=== PATIENT | female | born 1940 | race Caucasian/White ===

== ENCOUNTER → 2018-11-12 | Outpatient (CLI) | payer MEDICARE ==
--- NOTE | 2018-11-12 16:15 | CT ---
CT angiogram of the thoracic and abdominal aorta with runoff HISTORY: Abdominal aortic aneurysm Helical acquisition obtained through the aorta and outflow vasculature following 80 cc Isovue-370 IV. Three-dimensional reconstructions performed on an alternate workstation. There is atheromatous change present within the aorta. 3 super aortic branch vessels are noted and ar e patent. Vertebral arteries are patent proximally. The ascending aorta is not aneurysmal. There is n o evident dissection. Atheromatous change present within the descending aorta which is not aneurysmal . The celiac axis, superior mesenteric artery, renal arteries are patent. There is an infrarenal abdo daphney aortic aneurysm with luminal plaque present, aneurysm measures proximally 4.1 cm in greatest di mension. Common iliac arteries are not aneurysmal, there is extensive atheromatous change, the lumen suggest occlusion of the common iliac arteries, there is reconstitution via the internal iliac arteri es, external iliac arteries are patent, there are atheromatous changes. The superficial femoral, deep and common femoral arteries are patent. Popliteal arteries are patent. Three-vessel outflow is noted bilaterally. Emphysematous changes are present within the lungs, there is prominence of interstitium. Internal MRA arteries are patent bilaterally and collateralizes within the abdominal wall musculature. IMPRESSION: Infrarenal abdominal aortic aneurysm. Suspect a short segment occlusion of the common jia ac arteries bilaterally with reconstitution via the inferior epigastric arteries, pelvic collaterals, internal iliac arteries.
== END | disposition home or self-care (01) ==
LOC: RADCTMAIN 13:09
PROVIDERS: ATTEND Internal Medicine Cardiovascular Disease
DX: I71.4 Abdominal aortic aneurysm, without rupture (principal)
CPT/HCPCS: 82565; 84520; 75635; 71275; 36415; Q9967

== ENCOUNTER → 2019-02-25 | Outpatient (CLI) | payer MEDICARE ==
[2019-02-25 13:53] LABS: Potassium 4.7 mmol/L (3.5-5.1)
[2019-02-25 13:58] LABS: Basophils # (A) 0.2 k/uL (0-0.2); Basophils % (A) 1 %; Eosinophils # (A) 0.2 k/uL (0-0.7); Eosinophils % (A) 2 %; HCT 41.7 % (34.0-46.0); Lymphocytes # (A) 3.3 k/uL (1.0-4.8); Lymphocytes % (A) 29 %; MCH 31.4 pg (25.0-35.0); MCHC 33.6 g/dL (31.0-37.0); MCV 93.4 fL (80.0-100.0); Mean Platelet Volume 7.9; Monocytes # (A) 0.7 k/uL (0-1.0); Monocytes % (A) 6 %; Neutrophils # (A) 6.6 k/uL (1.3-7.7); Neutrophils % (A) 59 %; Platelet Count 310 k/uL (150-450); RBC 4.47 m/uL (3.80-5.40); RDW 14.5 % (11.5-15.5); WBC 11.2 k/uL (3.8-10.6)
[2019-02-25 14:22] LABS: Appearance,Urine Clear (Clear); Bilirubin,Urine Negative (Negative); Blood,Urine Negative (Negative); Color,Urine Light Yellow; Glucose,Urine (UA) Negative (Negative); Ketones,Urine Negative (Negative); Leukocyte Esterase,Urine Trace (Negative); Mucus,Urine Rare /hpf; Nitrite,Urine Negative (Negative); PH, Urine 6.5 (5.0-8.0); Protein,Urine Negative (Negative); RBC,Urine 1 /hpf (0-5); Specific Gravity,Urine 1.007 (1.001-1.035); Squamous Epithelial Cell,Urine <1 /hpf (0-4); Urobilinogen,Urine <2.0 mg/dL (<2.0); WBC,Urine <1 /hpf (0-5)
== END | disposition home or self-care (01) ==
LOC: LABPAT 12:59
PROVIDERS: ATTEND Surgery
DX: Z01.812 Encounter for preprocedural laboratory examination (principal); I70.213 Atherosclerosis of native arteries of extremities with intermittent claudication, bilateral legs
CPT/HCPCS: 36415; 80051; 81001; 82565; 84520; 85025

== ENCOUNTER 2019-03-10 08:32 | Inpatient (IN) | payer MEDICARE ==
[2019-03-05 15:40] VITALS: BMI 24.8
[~2019-03-10 08:32] MED LIST: DEXAMETHASONE SOD PHOSPHATE 10 MG/ML 1 ML VIAL IV ONE; HYDROmorphone 0.5 MG/0.5 ML SYRINGE IVP PRN; LACTATED RINGERS 1,000 ML IV SCH; LIDOCAINE 1% 20 ML VIAL (10MG/ML) FOR IV START INTRADERMA PRN; ONDANSETRON 4 MG/2 ML VIAL IVP PRN; SCOPOLAMINE 1.5MG/72HR PATCH TRANSDERM ONE; SODIUM CHLORIDE 0.9% 1,000 ML in EMPTY BAG 1 BAG IV ONE
[2019-03-10 09:21] LABS: Basophils # (A) 0.1 k/uL (0-0.2); Basophils % (A) 1 %; Eosinophils # (A) 0.3 k/uL (0-0.7); Eosinophils % (A) 3 %; HCT 40.4 % (34.0-46.0); HGB 13.5 gm/dL (11.4-16.0); Lymphocytes # (A) 2.9 k/uL (1.0-4.8); Lymphocytes % (A) 31 %; MCH 30.6 pg (25.0-35.0); MCHC 33.4 g/dL (31.0-37.0); MCV 91.8 fL (80.0-100.0); Mean Platelet Volume 6.9; Monocytes # (A) 0.6 k/uL (0-1.0); Monocytes % (A) 7 %; Neutrophils # (A) 5.3 k/uL (1.3-7.7); Neutrophils % (A) 56 %; Platelet Count 297 k/uL (150-450); RBC 4.41 m/uL (3.80-5.40); RDW 13.3 % (11.5-15.5); WBC 9.4 k/uL (3.8-10.6)
[2019-03-10] MEDS ORDERED: PHENYLEPHRINE-0.9% NACL SYG 1 MG/10 ML SYRINGE ONE (09:28)
[2019-03-10] MEDS ORDERED: SUCCINYLCHOLINE CHLORIDE 100 MG/5 ML SYR IV ONE (09:28)
[2019-03-10] MEDS ORDERED: DEXAMETHASONE SOD PHOS (MDV) 100 MG/10 ML VIAL ONE (09:28)
[2019-03-10] MEDS ORDERED: HEPARIN SODIUM,PORCINE 5,000 UNIT/ML 1 ML VIAL ONE (09:28)
[2019-03-10] MEDS ORDERED: ONDANSETRON 4 MG/2 ML VIAL ONE (09:28)
[2019-03-10] MEDS ORDERED: LIDOCAINE 1% INJ 10MG/ML (20 ML MDV) ONE (09:28)
[2019-03-10] MEDS ORDERED: PROPOFOL 10 MG/ML 20 ML VIAL IV ONE (09:28)
[2019-03-10] MEDS ORDERED: ePHEDrine SULFATE/0.9% NACL/PF 50 MG/5 ML SYRINGE IV ONE (09:28)
[2019-03-10] MEDS ORDERED: GLYCOPYRROLATE 0.2 MG/ML 2 ML VIAL ONE (09:28)
[2019-03-10] MEDS ORDERED: MIDAZOLAM 2 MG/2 ML VIAL ONE (09:28)
[2019-03-10] MEDS ORDERED: PROTAMINE SULFATE 10 MG/ML 5 ML VIAL IV ONE (09:28)
[2019-03-10] MEDS ORDERED: NITROGLYCERIN-D5W PMX 50 MG/250 ML BOTTLE IV ONE (09:28)
[2019-03-10] MEDS ORDERED: NEOSTIGMINE 1 MG/ML 10 ML VIAL ONE (09:28)
[2019-03-10] MEDS ORDERED: fentaNYL (PF) 50 MCG/ML 2 ML AMP ONE (09:28)
[2019-03-10] MEDS ORDERED: ROCURONIUM BROMIDE 10 MG/ML 10 ML VIAL IV ONE (09:28)
[2019-03-10 09:30] LABS: Calcium 10.2 mg/dL (8.4-10.2); Potassium 3.9 mmol/L (3.5-5.1)
[2019-03-10] MEDS ORDERED: SODIUM CHLORIDE 0.9% 1,000 ML IV ONE ×2 (09:35→14:03)
[2019-03-10] MEDS: LIDOCAINE 1% INJ 10MG/ML (20 ML MDV) SQ ONE ×3 (10:05→10:12)
[2019-03-10] MEDS: IOPAMIDOL-250 100ML BTL INTRAARTER ONE ×2 (11:00→13:24)
[2019-03-10] MEDS ORDERED: IOPAMIDOL-250 100ML BTL INTRAARTER ONE ×3 (11:30→13:49)
[2019-03-10] MEDS ORDERED: IOPAMIDOL-250 50ML BTL INTRAARTER ONE (13:50)
--- NOTE | 2019-03-10 14:54 | P.OP ---
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 #2 placement of catheter within the aorta #3 selective bilateral iliac artery angiograms #4 aortogram #5 retrograde femoral angiograms bilaterally. #6 percutaneous transluminal balloon angioplasty of the aorta, right common iliac, right external iliac, left common iliac, left external iliac arteries #7 endovascular aortic repair with AFX2 device. #8 percutaneous transluminal stenting with covered stent to the left common iliac artery and uncovered stenting of the right common iliac, external iliac artery #9 percutaneous closure with Perclose and 8-Andorran Angio-Seal for the right common femoral artery. Implants: Endologix AFX device 25 x 80 mm, suprarenal Salazar cuff 25 x 75 mm Left common iliac VBX stent 8 x 59 mm Right common iliac, external iliac artery ever Flex stent 8 x 120 mm Anesthesia: GETA Surgeon: Sunil Zuluaga Organic Extractions Technician #1: Brigitte Amador Estimated Blood Loss (ml): 30 IV fluids (ml): 1,300 Urine output (ml): 650 Pathology: none sent Condition: stable Disposition: PACU Indications for Procedure: 78-year-old female originally presented to the office secondary to complaints of pain with ambulation in her lower extremities and upon workup it was noted that she had a saccular 4.1 cm aneurysm. ABIs were obtained demonstrating 0.3 bilaterally. Upon physical examination patient did not have palpable femoral pulses and therefore a CT angiogram was obtained which demonstrated aortoiliac occlusion with 4.1 cm saccular aneurysm. We discussed after medical clearance was obtained performing endovascular repair if able to get across the lesions. She presents today for such repair. 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 Multiple collateralization noted throughout the entirety of the aorta as well as the iliacs bilaterally. Description of Procedure: After written informed consent was obtained the patient all risks benefits and competitions were described the patient is brought to the Change Control Analyst laid in a supine position. The area of the groins and left arm was prepped and draped in usual sterile fashion after appropriate anesthetic was performed per the anesthesiologist. A timeout was performed in normal fashion antibiotics were administered prior to any incisions. Utilizing ultrasound bilateral common femoral arteries were visualized and shown to be patent with minimal pulsatility. There was posterior plaque noted without any anterior plaque. Utilizing a multipurpose needle and under ultrasound guidance the bilateral femoral arteries were accessed and 5-Andorran sheaths were placed in normal fashion. The sheaths were then assessed for patency injured flushed easily. 035 Glidewire was then placed up each femoral sheath and demonstrated abrupt occlusion and inability of the wire to enter the aorta. At that time a retrograde angiogram was obtained through both femoral sheaths demonstrating total occlusion of the common iliac arteries bilaterally. At that time it was determined to get a better view of the aorta and therefore utilizing ultrasound the left brachial artery was accessed. Under ultrasound the left brachial a rtery was visualized shown to be patent without any significant arterial disease or plaquing. With a micropuncture kit the artery was accessed and a 5-Andorran sheath was placed. 035 Glidewire followed by a pigtail catheter was then placed into the aortic arch and directed into the descending thoracic aorta. Pigtail catheter was then taken down to the abdominal aorta just at the renal arteries and aortogram was obtained at that time. Patient was then administered heparin and followed with serial ACTs and redosed for appropriate heparinization to keep the ACT above 200. Upon angiogram it was noted that there was a 4.1 cm aneurysm with minimal flow to the sac and abrupt occlusion of the iliac arteries and distal aorta. There is large amount of collateralization noted and reconstitution at the distal common iliac arteries bilaterally. Due to the significant calcification and occlusion multiple attempts from the retrograde access as well as antegrade were going to be needed to be performed and therefore a long Raabe 6 Andorran sheath was placed through the brachial access after removal of the 5-Andorran sheath. Through this sheath and utilizing an 035 Glidewire with a quick cross catheter attempts were performed to get across the lesion. The same was performed in a retrograde fashion at bilateral femoral arteries with 035 Glidewire and quick cross catheters. Ultimately from the antegrade sheath in the brachial artery of the left iliac occlusion was crossed into the external iliac artery. Once in the external iliac artery a selective iliac angiogram was obtained which demonstrated intraluminal access. Utilizing a snare catheter the wire was grasped from the left femoral sheath and pulled to the external aspect of the sheath and a body floss technique. A 90 cm quick cr oss catheter was then placed over the wire from the femoral sheath and placed into the aorta past the occlusion. The wire was then removed and a another 035 Glidewire was placed into the descending thoracic aorta after selective aortic angiogram was obtained demonstrating good intraluminal access. Attempt and was placed to crossing the right iliac occlusion. Once again with the 035 Glidewire and quick cross catheter the iliac artery was attempted to be crossed. We also utilized a 018 Astato wire from a retrograde aspect with out success crossing into the aorta. After multiple attempts from the antegrade aspect the lumen was finally crossed after dissection plane was created. Selective angiogram once the quick cross catheter was across the external iliac lesion was performed and shown to be intraluminal. Utilizing the snare catheter once again the wire was grasped this time from the right femoral sheath and pulled externally and a body floss technique. 08/18/1989 centimeter quick cross catheter was then placed from the femoral sheath into the aorta and the wire was removed and an aortogram was obtained demonstrating good intraluminal access. 035 Glidewire was once again placed in the descending thoracic aorta. Catheters were then removed and balloon angioplasty was then performed with a 5 x 100 mm balloon in a kissing fashion both femoral sheaths. Once performed attention was then placed to endovascular aortic repair and stent placement. Over the 035 Glidewire on the right femoral access a 7-Andorran dilator was placed followed by 2 Perclose closure device which were placed in normal fashion. Once completed a 7-Andorran sheath was then guided over the guidewire and the guidewire was then exchanged over a quick cross catheter for a Lunderquist stiff wire. Due to the size of the Endologix sheath it was determined to perform another balloon angioplasty of the common iliac arteries with a 8 x 60 mm balloon. Once balloon angioplasty was completed the Endologix sheath was then advanced after removal of the 7-Andorran sheath over the Lunderquist wire. This was advanced to the bifurcation. A 25 x 80 mm AFX2 bifurcated device was then placed on the stiff wire and the contralateral wire was then advanced through the sheath and utilizing a snare catheter from the left common femoral artery the wire was then grasped and pulled to the external aspect of the left femoral sheath. The AFX introducer sheath was then advanced and the device was advanced into the aorta above the bifurcation releasing the limbs of the graft. The contralateral wire was then pulled and the graft was seated upon the bifurcation normal fashion. Once in agreement with good appropriate position the graft was then deployed in normal fashion. The left common iliac limb was then also deployed by pulling the yellow limb cover. A pigtail catheter was then placed over the left wire to free it from the introducer sheath. 035 Glidewire was then placed through the pigtail catheter and the pigtail catheter was placed into the descending thoracic aorta. Final deployment of the right iliac limb of the AFX device was then performed and the nosecone was retracted. There was significant narrowing of bilateral iliac limbs after deployment therefore the iliac limbs were angioplastied with 8 x 60 mm balloons. The calcification and stenosis was significant and therefore it was difficult to place the AFX sheath up the right iliac artery and therefore the 8 x 60 mm balloon was left in place in the left iliac limb to hold the graft in place while the AFX introducer sheath was placed into the infrarenal aorta. Once an appropriate placement aortogram was obtained via the brachial sheath after angles were performed with the C-arm for appropriate positioning of the renal arteries. Renal arteries were visualized and the main body 25 x 75 mm Salazar cath was then placed at the infrarenal aspect and deployed in normal fashion. Once completed the nosecone was retracted in normal fashion followed by its removal and then a Coda balloon was then placed for angioplasty throughout the entirety of the endograft. All overlaps were then angioplastied. Once completed angiogram was obtained demonstrating good flow through the AFX graft and no evidence of endoleak but there was some areas of dissection noted distal to the iliac limbs. An 8 x 59 mm VBX extension limb was then placed in the left common iliac artery just above the bifurcation of the internal and external iliac arteries to cover the significant stenosis and dissection. This was then postdilated with an 8 x 60 mm balloon. Due to the dissection on the right common iliac extending into the external iliac artery it was determined to place a 8 x 120 mm ever Flex open celled stent across this lesion which was deployed in normal fashion. Postdilatation was then performed with the 8 x 60 mm balloon. Final angiograms were obtained demonstrating good brisk flow throughout the entirety of the graft and stents without any evidence of endoleak. All guidewires and catheters were then removed the Perclose closure devices were secured on the right common femoral artery but there was still some bleeding and therefore an 8-Andorran Angio-Seal was then placed in normal fashion. Once completed angiogram was obtained which demonstrated significant narrowing of the common femoral artery at the access site and therefore a Glidewire was placed from the brachial access followed by a 6 mm balloon and balloon angioplasty was performed at the Angio-Seal site with good resolution of the narrowing and brisk flow on final angiogram noted through the common femoral and profunda as well as the superficial femoral artery. 8-Andorran Angio-Seal was also placed in the left common femoral access in normal fashion. At the final angiogram it was shown to have brisk flow throughout the femoral arteries. The brachial sheath was then removed and pressure was placed on all 3 sites at the conclusion of the procedure. Patient was also administered protamine for reversal of the heparin. Patient tolerated procedure well had palpable DP pulses at the conclusion of the procedure and was sent to PACU for recovery.
[2019-03-10] MEDS ORDERED: ONDANSETRON 4 MG/2 ML VIAL IVP ONE (14:56)
[2019-03-10 15:35] LABS: Glucose,Whole Blood 144 mg/dL (75-99)
[2019-03-10 15:54] LABS: Basophils % (A) 0 %; Eosinophils # (A) 0.1 k/uL (0-0.7); Eosinophils % (A) 0 %; HCT 32.7 % (34.0-46.0); HGB 11.2 gm/dL (11.4-16.0); Lymphocytes % (A) 7 %; MCHC 34.1 g/dL (31.0-37.0); MCV 93.7 fL (80.0-100.0); Mean Platelet Volume 7.8; Monocytes # (A) 0.2 k/uL (0-1.0); Monocytes % (A) 1 %; Neutrophils # (A) 14.1 k/uL (1.3-7.7); Neutrophils % (A) 92 %; Platelet Count 249 k/uL (150-450); RBC 3.49 m/uL (3.80-5.40); WBC 15.4 k/uL (3.8-10.6)
[2019-03-10 16:03] LABS: Calcium 8.3 mg/dL (8.4-10.2)
[2019-03-10] MEDS: HYDROcodone/APAP 5-325MG 1 EACH TAB PO PRN ×2 (16:27→18:58)
[2019-03-10] MEDS: SODIUM CHLORIDE 0.9% 1,000 ML IV SCH (17:17)
[2019-03-10] MEDS ORDERED: HYDROmorphone 0.5 MG/0.5 ML SYRINGE IVP PRN (18:35)
[2019-03-10] MEDS ORDERED: NALOXONE 0.4 MG/ML 1 ML VIAL IV PRN (18:59)
[2019-03-10] MEDS ORDERED: FAMOTIDINE 20 MG TAB PO PRN (19:14)
[2019-03-10] MEDS ORDERED: ONDANSETRON 4 MG/2 ML VIAL IVP PRN (19:48)
[2019-03-10] MEDS: ACETAMINOPHEN TAB 325 MG TAB PO PRN (20:00)
[2019-03-10 20:27] LABS: Appearance,Urine Clear (Clear); Bilirubin,Urine Negative (Negative); Blood,Urine Negative (Negative); Color,Urine Light Yellow; Glucose,Urine (UA) Negative (Negative); Ketones,Urine Negative (Negative); Leukocyte Esterase,Urine Negative (Negative); Nitrite,Urine Negative (Negative); PH, Urine 5.5 (5.0-8.0); Protein,Urine Negative (Negative); Urobilinogen,Urine <2.0 mg/dL (<2.0)
[2019-03-10 20:30] LABS: Specific Gravity,Urine >1.050 (1.001-1.035)
--- NOTE | 2019-03-10 23:59 | CONS ---
CONSULTATION CHIEF COMPLAINT: This is a 78-year-old white female, status post abdominal aortic aneurysm repair chest pain, shortness of breath, complaining of back pain from lying in one spot for a long time. Continue Tylenol for pain for her back, which will be ordered. Home medicines have been reordered. Fourteen-point review of systems negative except for mentioned in HPI. Labs are reviewed. Hemoglobin is 11.2, white count 15.4, creatinine 0.87, BUN 19. CARDIOVASCULAR: S1, S2. LUNGS: Clear. GI: Soft. HEMATOLOGY: Negative Homans. PSYCH: Fair mood and affect. NEUROLOGIC: Alert and oriented x3. ASSESSMENT: 1. Abdominal aortic aneurysm repair. 2. PAD repair. 3. Hypertension. Continue current treatments. Follow up in next 24 to 48 hours. Medically stable. Give Tylenol for back pain. MMODL / IJN: [id number] /
[2019-03-11 04:07] LABS: Basophils % (A) 0 %; Eosinophils % (A) 0 %; HCT 29.5 % (34.0-46.0); Lymphocytes # (A) 1.3 k/uL (1.0-4.8); Lymphocytes % (A) 11 %; MCH 29.7 pg (25.0-35.0); MCHC 31.8 g/dL (31.0-37.0); MCV 93.4 fL (80.0-100.0); Mean Platelet Volume 8.2; Monocytes # (A) 0.8 k/uL (0-1.0); Monocytes % (A) 7 %; Neutrophils # (A) 9.6 k/uL (1.3-7.7); Neutrophils % (A) 81 %; Platelet Count 202 k/uL (150-450); RBC 3.15 m/uL (3.80-5.40); RDW 13.5 % (11.5-15.5); WBC 11.8 k/uL (3.8-10.6)
[2019-03-11 04:21] LABS: Magnesium 1.7 mg/dL (1.6-2.3); Potassium 3.8 mmol/L (3.5-5.1)
[2019-03-11 04:22] LABS: HGB 9.4 gm/dL (11.4-16.0)
[2019-03-11] MEDS ORDERED: Magnesium Replacement Protocol 1 EACH MISC MISCELLANE PRN (05:43)
[2019-03-11] MEDS ORDERED: Potassium Replacement Protocol 1 EACH MISC MISCELLANE PRN (05:44)
[2019-03-11] MEDS: MAGNESIUM SULFATE-D5W PMX 1 GM in DEXTROSE/WATER 1 100ML.BAG IVPB SCH ×2 (05:54→06:55)
[2019-03-11] MEDS ORDERED: POTASSIUM CHLORIDE ER 20 MEQ TAB.ER PO SCH (06:00)
[2019-03-11] MEDS: SODIUM CHLORIDE 0.9% 1,000 ML IV SCH ×3 (06:56→19:56)
[2019-03-11] MEDS: HYDROCHLOROTHIAZIDE 25 MG TAB PO SCH (09:24)
[2019-03-11] MEDS: ASPIRIN 81 MG PO SCH (09:24)
[2019-03-11] MEDS: CLOPIDOGREL 75 MG TAB PO SCH (09:24)
[2019-03-11] MEDS: LOSARTAN 50 MG TAB PO SCH (09:24)
--- NOTE | 2019-03-11 10:35 | P.CNPUL ---
History of Present Illness Consult date: 03/10/19 Chief complaint: PVOD History of present illness: This is a 78-year-old female patient with history of claudication and pain in lower extremities upon walking and she was also noted to have a saccular 4.1 aneurysm. She did have a cineangiogram on outpatient basis demonstrating aortoiliac occlusion with a 4.1 cm saccular aneurysm. Based on this, the patient was taken to the operating room and the patient underwent a selective by lateral iliac artery angiograms an aortogram's and the patient underwent percutaneous transluminal balloon angioplasty of the aorta, right common iliac, right external iliac, left common iliac and left external iliac arteries. Endovascular aortic repair within AFX2 device and percutaneous transluminal stenting with a covered stent in the left common iliac artery and uncovered stent in the right common iliac artery Iliac artery. Past Medical History Past Medical History: Hypertension, Vascular Disorder Additional Past Medical History / Comment(s): aortic aneurysm, osteoporosis History of Any Multi-Drug Resistant Organisms: None Reported Past Surgical History: Bladder Surgery, Hysterectomy Additional Past Surgical History / Comment(s): D & C, bladder suspension Past Anesthesia/Blood Transfusion Reactions: No Reported Reaction Smoking Status: Former smoker - Past Family History Mother Family Medical History: No Reported History Medications and Allergies Home Medications Medication Instructions Recorded Confirmed Type Cimetidine [Tagamet] 200 mg PO BID PRN 03/08/19 03/10/19 History Hydrochlorothiazide [Hydrodiuril] 25 mg PO DAILY 03/08/19 03/10/19 History Losartan Potassium [Cozaar] 100 mg PO DAILY 03/08/19 03/10/19 History Allergies Allergy/AdvReac Type Severity Reaction Status Date / Time metronidazole [From Flagyl] Allergy Rash/Hives Verified 03/10/19 08:47 Physical Exam Vitals: Vital Signs Temp Pulse Pulse Pulse Resp BP BP 03/10/19 17:10 71 13 03/10/19 17:00 94.6 F L 65 10 L 137/87 03/10/19 16:50 46 L 23 137/87 03/10/19 16:40 52 L 13 137/87 03/10/19 16:30 59 L 16 137/87 03/10/19 16:20 58 L 8 L 137/87 03/10/19 16:10 94.6 F L 55 L 13 137/87 03/10/19 16:00 93.9 F L 58 L 12 03/10/19 15:50 59 L 6 L 137/87 03/10/19 15:40 64 13 137/87 03/10/19 15:30 58 L 67 12 137/87 03/10/19 15:20 93.6 F L 55 L 12 137/87 03/10/19 14:45 60 14 128/66 03/10/19 14:30 98.7 F 73 16 118/69 03/10/19 09:31 97.6 F 68 16 167/71 BP BP Pulse Ox 03/10/19 17:10 98 03/10/19 17:00 100 03/10/19 16:50 100 03/10/19 16:40 97 03/10/19 16:30 99 03/10/19 16:20 98 03/10/19 16:10 99 03/10/19 16:00 99 03/10/19 15:50 100 03/10/19 15:40 92 L 03/10/19 15:30 137/87 95 03/10/19 15:20 98 03/10/19 14:45 137/58 99 03/10/19 14:30 148/58 100 03/10/19 09:31 99 Intake and Output 03/10/19 03/10/19 03/10/19 06:59 14:59 22:59 Intake Total 1350 300 Output Total 275 170 Balance 1075 130 Intake: IV 1350 200 Sodium Chloride 0.9% 1, 200 000 ml @ 100 mls/hr IV . Q10H SATNAM Rx#:[id number] Intake, IV Titration 100 Amount Sodium Chloride 0.9% 1, 100 000 ml @ 100 mls/hr IV . Q10H SATNAM Rx#:[id number] Output: Urine 275 170 Other: Weight 60.4 kg ABP, PAP, CO, CI - Last 8 Hours Arterial Blood Pressure 136/68 Arterial Blood Pressure 126/62 Arterial Blood Pressure 121/52 Arterial Blood Pressure 105/52 Arterial Blood Pressure 116/56 Arterial Blood Pressure 118/57 Arterial Blood Pressure 118/56 Arterial Blood Pressure 125/56 Arterial Blood Pressure 127/62 Arterial Blood Pressure 125/60 Arterial Blood Pressure 145/62 Arterial Blood Pressure 131/53 The patient appeared well nourished and normally developed. Vital signs as docu mented. Head exam is unremarkable. No scleral icterus or corneal arcus noted. Neck is without jugular venous distension, thyromegaly, or carotid bruits. Carotid upstrokes are brisk bilaterally. Lungs are clear to auscultation and percussion. Cardiac exam reveals the PMI to be normally sized and situated. Rhythm is regular. First and second heart sounds normal. No murmurs, rubs or gallops. Abdominal exam reveals normal bowel sounds, no masses, no organomegaly and no aortic enlargement. Extremities are nonedematous and both femoral and pedal pulses are normal.Examination of the skin revealed no evidence of significant rashes, suspicious appearing nevi or other concerning lesions. Neurologically the patient is awake and alert and is no focal logical deficits. Results - Laboratory Findings CBC and BMP: 03/10/19 15:28 03/10/19 15:28 Abnormal lab findings: Abnormal Labs 03/10/19 03/10/19 03/10/19 09:00 15:23 15:28 WBC 15.4 H RBC 3.49 L Hgb 11.2 L Hct 32.7 L Neutrophils # 14.1 H Sodium BUN 24 H Creatinine 1.12 H Glucose 109 H POC Glucose (mg/dL) 144 H Calcium 03/10/19 15:28 WBC RBC Hgb Hct Neutrophils # Sodium 135 L BUN 19 H Creatinine Glucose 167 H POC Glucose (mg/dL) Calcium 8.3 L Assessment and Plan Plan: 1 aorta biiliac artery occlusion with infrarenal abdominal aortic second aneurysm measuring 4.1 cm. The patient underwent endovascular aortic repair, percutaneous stenting of the left common iliac and right common iliac and exte rnal iliac artery. Patient is currently postop day #0 2 hypertension 3 claudication second to peripheral vascular disease Plan Continue IV fluids. Aspirin. Plavix. Local for pain control. We'll monitor the patient ICU for another 24 hours. We'll continue to follow. Surgical wound to the dry clean and intact. There is adequate pulses in lower extremities bilaterally. No signs of an acute vascular insufficiency post vascular surgery.
[2019-03-11 12:08] LABS: HCT 29.4 % (34.0-46.0); MCH 31.8 pg (25.0-35.0); MCV 93.3 fL (80.0-100.0); Mean Platelet Volume 7.1; Platelet Count 237 k/uL (150-450); RBC 3.15 m/uL (3.80-5.40); RDW 13.6 % (11.5-15.5); WBC 16.7 k/uL (3.8-10.6)
--- NOTE | 2019-03-11 12:24 | P.PN ---
Subjective Progress Note Date: 03/11/19 Principal diagnosis: Status post percutaneous repair of abdominal aortic aneurysm and bilateral iliac arterial occlusive disease. A she is evaluated today. She indicates no discomfort in either leg or abdomen area. She is eating without nausea or vomiting. Her complaint is that of some occasional numbness of the fourth finger of the left upper extremity. Examination today revealed femoral, popliteal and posterior tibial pulses are intact bilaterally as well as a dorsalis pedis pulse on the left. Puncture wounds in the groin area are clean, dry and are healing normally. The puncture wound in the left brachial area is also clean and dry. I could not appreciate a brachial or radial pulse on the left. Systolic blood pressure is essentially equal between the 2 extremities on nearly simultaneous blood pressure readings utilizing cuff. The patient's hand is freely movable and nontender. There is no evidence of cyanosis. Labs are reviewed. There is a modest dip in hemoglobin and this is being followed. The patient's urine output has been quite normal. Her vitals are stable and the patient is afebrile. The patient appears essentially stable from a vascular surgical standpoint. The patient is free to ambulate ad xavi. Once cleared by medicine the patient can be discharged from a vascular surgical standpoint with office follow-up with Dr. Zuluaga in the office the next 2 or so weeks. Objective - Vital Signs Vital signs: Vital Signs Temp 98.7 F 03/11/19 08:00 Pulse 82 03/11/19 11:00 Resp 21 03/11/19 11:00 BP 113/58 03/11/19 10:00 Pulse Ox 99 03/11/19 11:00 Intake & Output 03/10/19 03/11/19 03/11/19 18:59 06:59 18:59 Intake Total 1750 1200 300 Output Total 495 373 145 Balance 1255 827 155 Weight 60.4 kg 66.7 kg Intake: IV 1650 1200 300 Sodium Chloride 0.9% 1, 300 1200 300 000 ml @ 100 mls/hr IV . Q10H SATNAM Rx#:[id number] Intake, IV Titration 100 Amount Sodium Chloride 0.9% 1, 100 000 ml @ 100 mls/hr IV . Q10H SATNAM Rx#:[id number] Output: Urine 495 373 145 ABP, PAP, CO, CI - Last Documented Arterial Blood Pressure 111/56 - Labs CBC & Chem 7: 03/11/19 11:55 03/11/19 04:00 Labs: Abnormal Lab Results - Last 24 Hours (Table) 03/10/19 03/10/19 03/10/19 Range/Units 15:23 15:28 15:28 WBC 15.4 H (3.8-10.6) k/uL RBC 3.49 L (3.80-5.40) m/uL Hgb 11.2 L (11.4-16.0) gm/dL Hct 32.7 L (34.0-46.0) % Neutrophils # 14.1 H (1.3-7.7) k/uL Sodium 135 L (137-145) mmol/L Carbon Dioxide (22-30) mmol/L BUN 19 H (7-17) mg/dL Glucose 167 H (74-99) mg/dL POC Glucose (mg/dL) 144 H (75-99) mg/dL Calcium 8.3 L (8.4-10.2) mg/dL Ur Specific Clyde (1.001-1.035) 03/10/19 03/11/19 03/11/19 Range/Units 20:00 04:00 04:00 WBC 11.8 H (3.8-10.6) k/uL RBC 3.15 L (3.80-5.40) m/uL Hgb 9.4 L D (11.4-16.0) gm/dL Hct 29.5 L (34.0-46.0) % Neutrophils # 9.6 H (1.3-7.7) k/uL Sodium 134 L (137-145) mmol/L Carbon Dioxide 21 L (22-30) mmol/L BUN 21 H (7-17) mg/dL Glucose 140 H (74-99) mg/dL POC Glucose (mg/dL) (75-99) mg/dL Calcium 8.0 L (8.4-10.2) mg/dL Ur Specific Clyde >1.050 H (1.001-1.035) 03/11/19 Range/Units 11:55 WBC 16.7 H (3.8-10.6) k/uL RBC 3.15 L (3.80-5.40) m/uL Hgb 10.0 L (11.4-16.0) gm/dL Hct 29.4 L (34.0-46.0) % Neutrophils # (1.3-7.7) k/uL Sodium (137-145) mmol/L Carbon Dioxide (22-30) mmol/L BUN (7-17) mg/dL Glucose (74-99) mg/dL POC Glucose (mg/dL) (75-99) mg/dL Calcium (8.4-10.2) mg/dL Ur Specific [place] (1.001-1.035)
--- NOTE | 2019-03-11 12:27 | P.PN ---
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 She did have a cineangiogram on outpatient basis demonstrating aortoiliac occlusion with a 4.1 cm saccular aneurysm. Based on this, the patient was taken to the operating room and the patient underwent a selective by lateral iliac artery angiograms an aortogram's and the patient underwent percutaneous transluminal balloon angioplasty of the aorta, right common iliac, right external iliac, left common iliac and left external iliac arteries. Endovascular aortic repair within AFX2 device and percutaneous transluminal stenting with a covered stent in the left common iliac artery and uncovered stent in the right common iliac artery Iliac artery. On 03/11/2018 patient seen in follow-up in intensive care unit. She is awake and alert, in no acute distress, she sits up in the chair, on room air, denies any chest pain, or shortness of breath, hemodynamically stable, no fever or chil ls, pulse ox is 99% on room air, lower extremities are warm, with palpable pulses, no numbness or tingling, the patient has complained of some left ring finger numbness and coolness, and vascular surgery assessed the patient and did not feel it was related to vascular abnormality but rather to nerve. Today's labs have been reviewed, showing a white blood cell count 16.7, hemoglobin of 10.0, sodium was 134, potassium is 3.8, CO2 is 21, B1 is 21, creatinine 0.93. No chest x-rays, no acute events overnight, antisipate discharge home today. Objective - Vital Signs Vital signs: Vital Signs Temp 98.7 F 03/11/19 08:00 Pulse 82 03/11/19 11:00 Resp 21 03/11/19 11:00 BP 113/58 03/11/19 10:00 Pulse Ox 99 03/11/19 11:00 Intake & Output 03/10/19 03/11/19 03/11/19 18:59 06:59 18:59 Intake Total 1750 1200 300 Output Total 495 373 145 Balance 1255 827 155 Weight 60.4 kg 66.7 kg Intake: IV 1650 1200 300 Sodium Chloride 0.9% 1, 300 1200 300 000 ml @ 100 mls/hr IV . Q10H [facility] Rx#:[id number] Intake, IV Titration 100 Amount Sodium Chloride 0.9% 1, 100 000 ml @ 100 mls/hr IV . Q10H [facility] Rx#:[id number] Output: Urine 495 373 145 ABP, PAP, CO, CI - Last Documented Arterial Blood Pressure 111/56 - Exam GENERAL EXAM: Alert, very pleasant, 78-year-old white female, on room air, with a pulse ox of 99% comfortable in no apparent distress. HEAD: Normocephalic/atraumatic. EYES: Normal reaction of pupils, equal size. Conjunctiva pink, sclera white. NOSE: Clear with pink turbinates. THROAT: No erythema or exudates. NECK: No masses, no JVD, no thyroid enlargement, no adenopathy. CHEST: No chest wall deformity. Symmetrical expansion. LUNGS: Equal air entry with no crackles, wheeze, rhonchi or dullness. CVS: Regular rate and rhythm, normal S1 and S2, no gallops, no murmurs, no rubs ABDOMEN: Soft, nontender. No hepatosplenomegaly, normal bowel sounds, no guarding or rigidity. EXTREMITIES: No clubbing, no edema, no cyanosis, 2+ pulses and upper and lower extremities. MUSCULOSKELETAL: Muscle strength and tone normal. SPINE: No scoliosis or deformity SKIN: No rashes CENTRAL NERVOUS SYSTEM: Alert and oriented -3. No focal deficits, tone is normal in all 4 extremities. PSYCHIATRIC: Alert and oriented -3. Appropriate affect. Intact judgment and insight. - Labs CBC & Chem 7: 03/11/19 11:55 03/11/19 04:00 Labs: Abnormal Lab Results - Last 24 Hours (Table) 03/10/19 03/10/19 03/10/19 Range/Units 15:23 15:28 15:28 WBC 15.4 H (3.8-10.6) k/uL RBC 3.49 L (3.80-5.40) m/uL Hgb 11.2 L (11.4-16.0) gm/dL Hct 32.7 L (34.0-46.0) % Neutrophils # 14.1 H (1.3-7.7) k/uL Sodium 135 L (137-145) mmol/L Carbon Dioxide (22-30) mmol/L BUN 19 H (7-17) mg/dL Glucose 167 H (74-99) mg/dL POC Glucose (mg/dL) 144 H (75-99) mg/dL Calcium 8.3 L (8.4-10.2) mg/dL Ur Specific [place] (1.001-1.035) 03/10/19 03/11/19 03/11/19 Range/Units 20:00 04:00 04:00 WBC 11.8 H (3.8-10.6) k/uL RBC 3.15 L (3.80-5.40) m/uL Hgb 9.4 L D (11.4-16.0) gm/dL Hct 29.5 L (34.0-46.0) % Neutrophils # 9.6 H (1.3-7.7) k/uL Sodium 134 L (137-145) mmol/L Carbon Dioxide 21 L (22-30) mmol/L BUN 21 H (7-17) mg/dL Glucose 140 H (74-99) mg/dL POC Glucose (mg/dL) (75-99) mg/dL Calcium 8.0 L (8.4-10.2) mg/dL Ur Specific [place] >1.050 H (1.001-1.035) 03/11/19 Range/Units 11:55 WBC 16.7 H (3.8-10.6) k/uL RBC 3.15 L (3.80-5.40) m/uL Hgb 10.0 L (11.4-16.0) gm/dL Hct 29.4 L (34.0-46.0) % Neutrophils # (1.3-7.7) k/uL Sodium (137-145) mmol/L Carbon Dioxide (22-30) mmol/L BUN (7-17) mg/dL Glucose (74-99) mg/dL POC Glucose (mg/dL) (75-99) mg/dL Calcium (8.4-10.2) mg/dL Ur Specific [place] (1.001-1.035) Assessment and Plan Plan: Assessment: 1 aorta biiliac artery occlusion with infrarenal abdominal aortic second aneurysm measuring 4.1 cm. The patient underwent endovascular aortic repair, percutaneous stenting of the left common iliac and right common iliac and exte rnal iliac artery. Patient is currently postop day #1 2 hypertension 3 claudication second to peripheral vascular disease Plan: Clinically patient remains stable, hemodynamically stable, no complaints of chest pain, or shortness of breath, no acute events overnight, today's lab work has been noted, lower extremity pulses are palpable, extremities are warm, no numbness or tingling, patient is tolerating activity, has been cleared for discharge by vascular surgery. I performed a history & physical examination of the patient and discussed their management with my nurse practitioner, Paulina Brewster. I reviewed the nurse practitioner's note and agree with the documented findings and plan of care. Lung sounds are positive for clear breath sounds. The findings and the impression was discussed with the patient. I attest to the documentation by the nurse practitioner. Time with Patient: Less than 30
[2019-03-11] MEDS ORDERED: FAMOTIDINE 20 MG TAB PO PRN (13:28)
--- NOTE | 2019-03-11 16:15 | P.PN ---
Subjective Progress Note Date: 03/11/19 This is a 70-year-old female status post abdominal aortic aneurysm repair. Tolerated procedure well. Sitting up in chair, denies chest pain, palpitations or shortness of breath. Telemetry sinus rhythm. Hemoglobin 9.4, platelets 202; follow-up CBC at noon pending. Denies lightheadedness dizziness or focal deficits. Vital signs stable. Maintaining O2 sats in the high 90s on room air. Earlier complained of left ring finger numbness, coolness, subsided; extremity warm, capillary refill less than 2 second, positive radial pulse. Afebrile. Objective - Vital Signs Vital signs: Vital Signs Temp 98.7 F 03/11/19 08:00 Pulse 84 03/11/19 14:00 Resp 14 03/11/19 14:00 BP 117/54 03/11/19 14:00 Pulse Ox 99 03/11/19 14:00 Intake & Output 03/10/19 03/11/19 03/11/19 18:59 06:59 18:59 Intake Total 1750 1200 600 Output Total 495 373 695 Balance 1255 827 -95 Weight 60.4 kg 66.7 kg Intake: IV 1650 1200 600 Sodium Chloride 0.9% 1, 300 1200 600 000 ml @ 100 mls/hr IV . Q10H [facility] Rx#:[id number] Intake, IV Titration 100 Amount Sodium Chloride 0.9% 1, 100 000 ml @ 100 mls/hr IV . Q10H [facility] Rx#:[id number] Output: Urine 495 373 695 ABP, PAP, CO, CI - Last Documented Arterial Blood Pressure 111/56 - Exam PHYSICAL EXAM: VITAL SIGNS: As above GENERAL: Sitting up in chair, no acute distress HEENT: Conjunctivae normal. eyes normal. Oral mucosa moist NECK: No JVD. No thyroid enlargement. No LNs CARDIOVASCULAR: S1, S2 regular.. No murmur RESPIRATION: Breath sounds diminished in the bases. No rhonchi or crackles. No bronchial breathing. ABDOMEN: Soft, nontender . No guarding. no masses palpable. No ascites, No hepatosplenomegaly.Bowel sounds heard. EXTREMITIES: No swelling, no edema, no cyanosis. No calf tenderness, no clubbing. Positive palpable pulses all 4 extremities. PSYCHIATRY: Alert and oriented X3, mood and affect normal. NERVOUS SYSTEM: Cranial N 2-12 grossly normal. Moves all 4 limbs. Diffuse weakness No focal deficits. Strength and sensation grossly intact.. Skin: no lesions, no rash Lymphatic system. No LN neck axilla or groin. - Labs CBC & Chem 7: 03/11/19 11:55 03/11/19 04:00 Labs: Abnormal Lab Results - Last 24 Hours (Table) 03/10/19 03/10/19 03/10/19 Range/Units 15:23 15:28 15:28 WBC 15.4 H (3.8-10.6) k/uL RBC 3.49 L (3.80-5.40) m/uL Hgb 11.2 L (11.4-16.0) gm/dL Hct 32.7 L (34.0-46.0) % Neutrophils # 14.1 H (1.3-7.7) k/uL Sodium 135 L (137-145) mmol/L Carbon Dioxide (22-30) mmol/L BUN 19 H (7-17) mg/dL Glucose 167 H (74-99) mg/dL POC Glucose (mg/dL) 144 H (75-99) mg/dL Calcium 8.3 L (8.4-10.2) mg/dL Ur Specific [place] (1.001-1.035) 03/10/19 03/11/19 03/11/19 Range/Units 20:00 04:00 04:00 WBC 11.8 H (3.8-10.6) k/uL RBC 3.15 L (3.80-5.40) m/uL Hgb 9.4 L D (11.4-16.0) gm/dL Hct 29.5 L (34.0-46.0) % Neutrophils # 9.6 H (1.3-7.7) k/uL Sodium 134 L (137-145) mmol/L Carbon Dioxide 21 L (22-30) mmol/L BUN 21 H (7-17) mg/dL Glucose 140 H (74-99) mg/dL POC Glucose (mg/dL) (75-99) mg/dL Calcium 8.0 L (8.4-10.2) mg/dL Ur Specific [place] >1.050 H (1.001-1.035) 03/11/19 Range/Units 11:55 WBC 16.7 H (3.8-10.6) k/uL RBC 3.15 L (3.80-5.40) m/uL Hgb 10.0 L (11.4-16.0) gm/dL Hct 29.4 L (34.0-46.0) % Neutrophils # (1.3-7.7) k/uL Sodium (137-145) mmol/L Carbon Dioxide (22-30) mmol/L BUN (7-17) mg/dL Glucose (74-99) mg/dL POC Glucose (mg/dL) (75-99) mg/dL Calcium (8.4-10.2) mg/dL Ur Specific [place] (1.001-1.035) Assessment and Plan Assessment: Status post abdominal aortic aneurysm repair PAD repair Hypertension Plan: Continue current medication regime ,monitoring and symptomatic treatment. Follow closely with fish farm laborer/vascular surgery. Vascular surgery discussing potential discharge home today, pending repeat CBC. Further recommendations to follow. Thank you Dr. Zuluaga for the consult. The impression and plan of care has been dictated as directed. : I performed a history and examination of this patient, discussed the same with the dictator. I agree with the dictator's note ,documented as a scribe. Any additional findings or plans will be noted.
[2019-03-11 18:46] LABS: Basophils # (A) 0.1 k/uL (0-0.2); Basophils % (A) 1 %; Eosinophils # (A) 0.2 k/uL (0-0.7); Eosinophils % (A) 1 %; HCT 31.2 % (34.0-46.0); HGB 10.3 gm/dL (11.4-16.0); Lymphocytes # (A) 1.4 k/uL (1.0-4.8); Lymphocytes % (A) 9 %; MCH 31.3 pg (25.0-35.0); MCHC 33.1 g/dL (31.0-37.0); MCV 94.4 fL (80.0-100.0); Mean Platelet Volume 7.7; Monocytes # (A) 0.9 k/uL (0-1.0); Monocytes % (A) 5 %; Neutrophils # (A) 13.6 k/uL (1.3-7.7); Neutrophils % (A) 83 %; Platelet Count 237 k/uL (150-450); RBC 3.31 m/uL (3.80-5.40); RDW 13.7 % (11.5-15.5); WBC 16.3 k/uL (3.8-10.6)
[2019-03-11] MEDS: ACETAMINOPHEN TAB 325 MG TAB PO PRN (22:13)
[2019-03-12] MEDS: SODIUM CHLORIDE 0.9% 1,000 ML IV SCH (04:28)
[2019-03-12 04:59] LABS: Basophils % (A) 0 %; Eosinophils # (A) 0.3 k/uL (0-0.7); Eosinophils % (A) 2 %; HCT 28.7 % (34.0-46.0); HGB 9.8 gm/dL (11.4-16.0); Lymphocytes # (A) 2.6 k/uL (1.0-4.8); Lymphocytes % (A) 20 %; MCH 31.4 pg (25.0-35.0); MCHC 34.3 g/dL (31.0-37.0); MCV 91.4 fL (80.0-100.0); Mean Platelet Volume 6.5; Monocytes # (A) 0.8 k/uL (0-1.0); Monocytes % (A) 6 %; Neutrophils # (A) 9.4 k/uL (1.3-7.7); Neutrophils % (A) 71 %; Platelet Count 238 k/uL (150-450); RBC 3.13 m/uL (3.80-5.40); RDW 13.3 % (11.5-15.5); WBC 13.4 k/uL (3.8-10.6)
[2019-03-12 05:10] LABS: Magnesium 2.1 mg/dL (1.6-2.3); Potassium 3.6 mmol/L (3.5-5.1)
[2019-03-12] MEDS ORDERED: POTASSIUM CHLORIDE ER 20 MEQ TAB.ER PO SCH (06:00)
--- NOTE | 2019-03-12 09:20 | P.DS ---
Providers Date of admission: 03/10/19 08:32 Attending physician: Sunil Zuluaga DO Consults: 03/10/19 06:20 Consult to Anesthesia Routine Consulting Provider: Anesthesia,Services Consult Reason/Comments: General anesthesia for Aortic Stent procedure 03/10/19 14:33 Consult Physician Routine Consulting Provider: Jamshid Toney Consult Reason/Comments: Medical management post AAA repair Do you want consulting provider notified?: Yes 03/10/19 14:50 Consult Physician Urgent Consulting Provider: Debra John Consult Reason/Comments: ICU managemnt Do you want consulting provider notified?: Yes 03/10/19 16:27 Consult Physician Routine Consulting Provider: Jeffrey Solitario Consult Reason/Comments: Covers medical management for Dr. Jamshid Toney post AAA repair. Do you want consulting provider notified?: Yes Primary care physician: Jamshid Toney Hospital Course: Patient is a 78-year-old female who was initially admitted from the outpatient setting for repair of her infrarenal abdominal aortic aneurysm and occluded iliac arteries bilaterally which she underwent on 03/10/2019. In the postoperative period she is doing well. Today she has been tolerating her diet. She will ambulate again today and if this goes well she will be discharged home. Her abdomen is soft, nontender nondistended. She has palpable ultrasound pedis pulses bilaterally. Her feet are warm and dry. Her left arm, on her fourth finger there is a little bit of duskiness at the tip, although her pulses are intact in her Doppler signals are multiphasic both radial and ulnar. There is capillary refill. She will be started on Plavix upon discharge due to her new stents and occlusive disease in her bilateral iliacs. She has a follow-up with Dr. Zuluaga in approximately 2 weeks. At this time she is found be in satisfactory condition for discharge home. Patient Condition at Discharge: Good Plan - Discharge Summary Discharge Rx Participant: Yes New Discharge Prescriptions: New Aspirin 81 mg PO DAILY chew Clopidogrel [Plavix] 75 mg PO DAILY #30 tab Acetaminophen Tab [Tylenol] 650 mg PO Q6HR PRN tab PRN Reason: Mild Breakthrough Pain Continue Losartan Potassium [Cozaar] 100 mg PO DAILY Hydrochlorothiazide [Hydrodiuril] 25 mg PO DAILY Cimetidine [Tagamet] 200 mg PO BID PRN PRN Reason: Heartburn Discharge Medication List Cimetidine [Tagamet] 200 mg PO BID PRN 03/08/19 [History] Hydrochlorothiazide [Hydrodiuril] 25 mg PO DAILY 03/08/19 [History] Losartan Potassium [Cozaar] 100 mg PO DAILY 03/08/19 [History] Acetaminophen Tab [Tylenol] 650 mg PO Q6HR PRN tab 03/11/19 [Rx] Aspirin 81 mg PO DAILY chew 03/11/19 [Rx] Clopidogrel [Plavix] 75 mg PO DAILY #30 tab 03/11/19 [Rx] Follow up Appointment(s)/Referral(s): Joselin Mullins NPC [REFERRING] - 03/15/19 11:30 am Sunil Zuluaga DO [STAFF PHYSICIAN] - 03/30/19 3:00 pm Ambulatory/Diagnostic Orders: Complete Blood Count w/diff [LAB.AMB] Time Frame: 3 Days, Location: None Selected Patient Instructions/Handouts: Heart Healthy Diet (DC), Endovascular Aneurysm Repair of Abdominal Aorta (DC)
[2019-03-12] MEDS: LOSARTAN 50 MG TAB PO SCH (09:34)
[2019-03-12] MEDS: CLOPIDOGREL 75 MG TAB PO SCH (09:34)
[2019-03-12] MEDS: HYDROCHLOROTHIAZIDE 25 MG TAB PO SCH (09:34)
[2019-03-12] MEDS: ASPIRIN 81 MG PO SCH (09:34)
[2019-03-12 10:40] VITALS: RESP 16
--- NOTE | 2019-03-12 11:59 | IR ---
EXAMINATION TYPE: IR captain/airline pilot aorta DATE OF EXAM: 03/10/2019 COMPARISON: NONE HISTORY: Fluoroscopy time. Fluoroscopy was provided to the referring clinician.
[2019-03-12 12:18] VITALS: TEMP 98.3
--- NOTE | 2019-03-12 13:09 | P.PN ---
Subjective Progress Note Date: 03/12/19 This is a 78-year-old female patient with history of claudication and pain in lower extremities upon walking and she was also noted to have a saccular 4.1 aneurysm. She did have a cineangiogram on outpatient basis demonstrating aortoiliac occlusion with a 4.1 cm saccular aneurysm. Based on this, the pa kenney was taken to the operating room and the patient underwent a selective by lateral iliac artery angiograms an aortogram's and the patient underwent percutaneous transluminal balloon angioplasty of the aorta, right common iliac, right external iliac, left common iliac and left external iliac arteries. Endovascular aortic repair within AFX2 device and percutaneous transluminal stenting with a covered stent in the left common iliac artery and uncovered stent in the right common iliac artery Iliac artery. On 03/11/2019 patient seen in follow-up in intensive care unit. She is awake and alert, in no acute distress, she sits up in the chair, on room air, denies any chest pain, or shortness of breath, hemodynamically stable, no fever or chills, pulse ox is 99% on room air, lower extremities are warm, with palpable pulses, no numbness or tingling, the patient has complained of some left ring finger numbness and coolness, and vascular surgery assessed the patient and did not feel it was related to vascular abnormality but rather to nerve. Today's labs have been reviewed, showing a white blood cell count 16.7, hemoglobin of 10.0, sodium was 134, potassium is 3.8, CO2 is 21, B1 is 21, creatinine 0.93. No chest x-rays, no acute events overnight, antisipate discharge home today. On 03/12/2019, the patient is being seen for a follow-up. No new complaints. Hemoglobin is stable for now. No further drop in hemoglobin. As mentioned earlier the patient developed a hematoma in the left thigh area and this was clinically evident. The patient had adequate pulses in lower extremities bilaterally. She did have some numbness in her fourth finger in the left arm and Doppler signals could be obtained and vascular surgery. The patient. On examination the patient had adequate capillary refill. The patient is doing well. She is ambulating. She was started on Plavix and aspirin and she'll be discharged home. She has been already cleared by vascular surgery. She is tolerating her diet. She is ambulating. No other significant events overnight. Objective - Vital Signs Vital signs: Vital Signs Temp 98.3 F 03/12/19 12:00 Pulse 84 03/12/19 12:00 Resp 16 03/12/19 12:00 BP 156/87 03/12/19 12:00 Pulse Ox 96 03/12/19 12:00 Intake & Output 03/11/19 03/12/19 03/12/19 18:59 06:59 18:59 Intake Total 600 240 140 Output Total 880 1250 400 Balance -280 -1010 -260 Weight 66.1 kg Intake: IV 600 Sodium Chloride 0.9% 1, 600 000 ml @ 100 mls/hr IV . Q10H [facility] Rx#:[id number] Oral 240 140 Output: Urine 880 1250 400 Other: Voiding Method Indwelling Catheter Bedpan # Voids 1 1 ABP, PAP, CO, CI - Last Documented Arterial Blood Pressure 111/56 - Exam GENERAL EXAM: Alert, very pleasant, 78-year-old white female, on room air, with a pulse ox of 99% comfortable in no apparent distress. HEAD: Normocephalic/atraumatic. EYES: Normal reaction of pupils, equal size. Conjunctiva pink, sclera white. NOSE: Clear with pink turbinates. THROAT: No erythema or exudates. NECK: No masses, no JVD, no thyroid enlargement, no adenopathy. CHEST: No chest wall deformity. Symmetrical expansion. LUNGS: Equal air entry with no crackles, wheeze, rhonchi or dullness. CVS: Regular rate and rhythm, normal S1 and S2, no gallops, no murmurs, no rubs ABDOMEN: Soft, nontender. No hepatosplenomegaly, normal bowel sounds, no guarding or rigidity. EXTREMITIES: No clubbing, no edema, no cyanosis, 2+ pulses and upper and lower extremities. There is a hematoma formation in the left frontal of the left upper thigh/groin area with some bruising of the skin. There is some asymmetry in the size of the left lower extremity compared to the right. Equal and symmetrical pulses in lower extremities. MUSCULOSKELETAL: Muscle strength and tone normal. SPINE: No scoliosis or deformity SKIN: No rashes CENTRAL NERVOUS SYSTEM: Alert and oriented -3. No focal deficits, tone is normal in all 4 extremities. PSYCHIATRIC: Alert and oriented -3. Appropriate affect. Intact judgment and insight. - Labs CBC & Chem 7: 03/12/19 04:23 03/12/19 04:23 Labs: Abnormal Lab Results - Last 24 Hours (Table) 03/11/19 03/12/19 03/12/19 Range/Units 18:07 04:23 04:23 WBC 16.3 H 13.4 H (3.8-10.6) k/uL RBC 3.31 L 3.13 L (3.80-5.40) m/uL Hgb 10.3 L 9.8 L (11.4-16.0) gm/dL Hct 31.2 L 28.7 L (34.0-46.0) % Neutrophils # 13.6 H 9.4 H (1.3-7.7) k/uL Sodium 136 L (137-145) mmol/L Assessment and Plan Plan: 1 aorta biiliac artery occlusion with infrarenal abdominal aortic second aneurysm measuring 4.1 cm. The patient underwent endovascular aortic repair, percutaneous stenting of the left common iliac and right common iliac and external iliac artery. Patient is currently postop day #2 2 hypertension 3 claudication second to peripheral vascular disease 4 left thigh hematoma, soft and stable 5 blood loss anemia with a drop in hemoglobin down to 9.8 in stable for now. Plan Clinically stable. Hemodynamically stable. Hemoglobin is stable. Discharge the patient home as the patient has been cleared by vascular surgery. The patie nt will be going home on aspirin and Plavix along with Tylenol on an as-needed basis for pain. Outpatient medication been resumed. Follow-up with vascular surgery.
[2019-03-12 17:52] VITALS: BP 135/65; PULSE 81
== END 2019-03-12 19:06 | disposition home health service (06) | DRG 269 ==
LOC: 2ORMAIN 08:32 → 2SICU 14:15
PROVIDERS: ADMIT Surgery; ATTEND Surgery
PROC: B41D1ZZ Fluoroscopy of Aorta and Bilateral Lower Extremity Arteries using Low Osmolar Contrast (ICD-10-PCS; principal; 2019-03-10 09:30)
PROC: 047D3DZ Dilation of Left Common Iliac Artery with Intraluminal Device, Percutaneous Approach (ICD-10-PCS; principal; 2019-03-10 09:30)
PROC: 04V03D6 (ICD-10-PCS; principal; 2019-03-10 09:30)
PROC: 047H3DZ Dilation of Right External Iliac Artery with Intraluminal Device, Percutaneous Approach (ICD-10-PCS; principal; 2019-03-10 09:30)
PROC: 047C3DZ Dilation of Right Common Iliac Artery with Intraluminal Device, Percutaneous Approach (ICD-10-PCS; principal; 2019-03-10 09:30)
DX: I71.4 Abdominal aortic aneurysm, without rupture (principal); I74.5 Embolism and thrombosis of iliac artery; I10 Essential (primary) hypertension; I70.213 Atherosclerosis of native arteries of extremities with intermittent claudication, bilateral legs; M81.0 Age-related osteoporosis without current pathological fracture; Z79.899 Other long term (current) drug therapy; Z86.79 Personal history of other diseases of the circulatory system; Z87.891 Personal history of nicotine dependence; Z90.710 Acquired absence of both cervix and uterus; Z79.51 Long term (current) use of inhaled steroids; I25.10 Atherosclerotic heart disease of native coronary artery without angina pectoris; E78.5 Hyperlipidemia, unspecified; Z82.49 Family history of ischemic heart disease and other diseases of the circulatory system; K21.9 Gastro-esophageal reflux disease without esophagitis; N28.9 Disorder of kidney and ureter, unspecified
CPT/HCPCS: 34705; 37221; 80048; 81003; 83735; 85025; 85027; 86850; 86900; 86901

== ENCOUNTER → 2019-04-12 | Outpatient (CLI) | payer MEDICARE ==
--- NOTE | 2019-04-13 05:18 | CT ---
EXAMINATION TYPE: CT angio abdomen pelvis DATE OF EXAM: 04/12/2019 COMPARISON: 11/12/2018 HISTORY: 78-year-old female AAA without rupture. Follow up for surgical repair 03-10-19. TECHNIQUE: Contiguous axial scanning of the abdomen and pelvis before and after administration of 80 ml Isovue 370 IV contrast. Delayed images through the stent graft and coronal/sagittal reconstructio ns performed. CT DLP: 641.4 mGycm Automated exposure control for dose reduction was used. FINDINGS: Heart normal size without pericardial effusion. Small hiatal hernia. Lung bases clear without pleural effusion. No focal liver lesion or biliary ductal dilatation. Portal venous system is patent. Gallbladder, adrenal glands, left kidney, spleen, and pancreas appear within normal limits. The demonstrated cortical atrophy midpole the right kidney suggesting prior vascular or infectious in sults. No dilated small bowel, free fluid, or free air. No mesenteric or retroperitoneal lymphadenopathy. Scattered mild to moderate stool. Sigmoid diverticulosis. No pericolonic inflammatory change. Moderate to severe atherosclerotic calcifications throughout the lower thoracic, abdominal, and iliac arteries. Interval placement of aortobiiliac stent graft across the patient's infrarenal abdominal aortic aneur ysm. Scattered calcifications are redemonstrated within the thrombosed [place] sac. No leak is identif ied. Negative sac caliber is 4.0 cm AP, unchanged. The width is minimally increased at 4.2 cm versus 4.0 cm, previously. Follow-up is recommended. This slight apparent increase may be due to the measure ment including the wall of the stent graft along the right lateral aspect. Improved patency of the common iliac arteries after stent placement. There is a small 3 mm centrally located filling defect within the right common femoral artery, refer to series 7 axial image 61. Bladder urine distended. Tiny focus of intraluminal air is noted. Uterus surgically absent. No abnorm al fluid collection in the pelvis are pelvic lymphadenopathy seen. Bones: Mild degenerative changes at the hips facet arthropathy lower lumbar spine. Grade 1 retrolisth esis at L1-L2. IMPRESSION: 1. STATUS POST PLACEMENT OF AORTOBIILIAC ENDOVASCULAR STENT GRAFT ACROSS THE PATIENT'S AAA. NO EVIDEN CE FOR ENDOLEAK. [place] SAC CALIBER IS 4.2 X 4.0 CM (VERSUS 4.0 X 4.0 CM, PREVIOUSLY). ADDITIONAL FOL LOW-UP IS RECOMMENDED. THE SLIGHT APPARENT INCREASE MAY BE DUE TO THE MEASUREMENT NOW INCLUDING THE W ALL OF THE STENT GRAFT ALONG THE RIGHT LATERAL ASPECT. 2. IMPROVED PATENCY OF THE BILATERAL COMMON ILIAC ARTERIES AFTER STENT PLACEMENT. 3. NOTE A SMALL 3 MM FILLING DEFECT WITHIN THE RIGHT COMMON FEMORAL ARTERY SUGGESTING RISK FOR DISTAL THROMBOEMBOLISM WITHIN THE RIGHT LOWER EXTREMITY. 4. SIGMOID DIVERTICULOSIS. 5. TINY INTRALUMINAL FOCUS OF AIR NONDEPENDENT WITHIN THE BLADDER LUMEN. FINDINGS CAN BE SEEN WITH RE CENT INSTRUMENTATION OR INFECTION. CLINICALLY CORRELATE.
== END ==
LOC: RADCTMAIN 16:24
PROVIDERS: ATTEND Surgery
DX: I71.4 Abdominal aortic aneurysm, without rupture (principal); K57.30 Diverticulosis of large intestine without perforation or abscess without bleeding; R93.89 Abnormal findings on diagnostic imaging of other specified body structures; R93.41 Abnormal radiologic findings on diagnostic imaging of renal pelvis, ureter, or bladder; Z95.828 Presence of other vascular implants and grafts
CPT/HCPCS: 82565; 84520; 36415; 74174; Q9967

== ENCOUNTER 2024-10-06 13:57 | Inpatient (IN) | payer MEDICARE ==
[2024-10-06] MEDS: METOCLOPRAMIDE 5 MG/ML 2 ML VIAL IVP STA (14:24)
[2024-10-06 14:25] LABS: Basophils # (A) 0.05 10*3/uL (0.00-0.10); Basophils % (A) 0.3 %; Eosinophils % (A) 0.6 %; Lymphocytes # (A) 1.25 10*3/uL (0.90-5.00); Lymphocytes % (A) 8.1 %; MCH 33.1 pg (27.0-32.0); MCV 94.6 fL (80.0-97.0); Mean Platelet Volume 10.5 fL (9.5-12.2); Monocytes # (A) 1.19 10*3/uL (0.20-1.00); Monocytes % (A) 7.7 %; Neutrophils # (A) 12.61 10*3/uL (1.80-7.70); Neutrophils % (A) 82.1 %; Platelet Count 287 10*3/uL (140-440); RBC 4.23 10*6/uL (4.10-5.20); RDW 13.2 % (11.5-14.5); WBC 15.39 10*3/uL (4.50-10.00)
[2024-10-06 14:47] LABS: Partial Thromboplastin Time 22.2 sec (22.0-30.0); Prothrombin Time 11.1 sec (10.0-12.5)
--- NOTE | 2024-10-06 14:48 | XR ---
EXAMINATION TYPE: XR chest 1V DATE OF EXAM: 10/06/2024 2:42 PM COMPARISON: CTA thoracoabdominal with runoff 11/12/2018 TECHNIQUE: XR chest 1V Portable AP radiograph of the chest. CLINICAL INDICATION:Female, 83 years old with history of fall; pain FINDINGS: Lungs/Pleura: There is no evidence of pleural effusion, focal consolidation, or pneumothorax. Chroni c senescent parenchyma change. Pulmonary vascularity: Unremarkable. Heart/mediastinum: Cardiomediastinal silhouette is prominent in size. Atherosclerotic calcifications are seen in the aorta. Musculoskeletal: No acute osseous pathology. Other: Partial visualization of abdominal aortic stent graft. IMPRESSION: No acute traumatic process. [facility], , 10/06/2024 2:46 PM
--- NOTE | 2024-10-06 14:51 | XR ---
EXAMINATION TYPE: XR Hip LT and AP Pelvis DATE OF EXAM: 10/06/2024 2:42 PM INDICATION: Patient age:Female; 83 years old; Reason for study: fall; PHH. pain COMPARISON: CTA abdomen and pelvis 04/12/2019 TECHNIQUE: The left hip was examined in the frontal and lateral projections and a AP pelvis. FINDINGS: Acute left subcapital femoral neck fracture with moderate displacement and shortening. No d islocation.Partial visualization of aortobiiliac stent grafts. Pelvic phleboliths. Vascular calcifica tions. IMPRESSION: Acute moderately displaced left subcapital femoral neck fracture. [facility], , 10/06/2024 2:48 PM
[2024-10-06 14:55] LABS: ALT 25 U/L (4-34); African American GFR (CKD) 67 (>60 ml/min/1.73 sqM); Anion Gap 7 mmol/L; Blood Urea Nitrogen 19 mg/dL (7-17); Calcium 9.6 mg/dL (8.4-10.2); Carbon Dioxide 28 mmol/L (22-30); Chloride 98 mmol/L (98-107); Glucose 147 mg/dL (74-99); Non-African American GFR(CKD) 59 (>60 ml/min/1.73 sqM); Sodium 133 mmol/L (137-145); Total Bilirubin 1.1 mg/dL (0.2-1.3)
[2024-10-06 14:57] LABS: AST 36 U/L (14-36); Albumin 4.6 g/dL (3.5-5.0); Alkaline Phosphatase 91 U/L (38-126); Potassium 4.3 mmol/L (3.5-5.1); Total Protein 7.2 g/dL (6.3-8.2)
[2024-10-06] MEDS: HYDROmorphone 0.5 MG/0.5 ML SYRINGE IVP STA (15:09)
[2024-10-06] MEDS ORDERED: NALOXONE 0.4 MG/ML 1 ML VIAL IV PRN (15:13)
--- NOTE | 2024-10-06 15:13 | ED ---
General Adult HPI - General Stated complaint: Fall Time Seen by Provider: 10/06/24 13:58 Source: patient, EMS, RN notes reviewed Mode of arrival: EMS Limitations: no limitations - History of Present Illness Initial comments: 83-year-old female presents emergency department chief complaint of a fall. She states she tripped and fell outside onto her left hip. Patient denies any head injury no loss conscious states she does take an aspirin, Plavix from prior vascular surgery. Patient denies any Coumadin Eliquis or Xarelto. Patient denies any chest pain no upper extremity injuries. Patient states that pain is only to her left hip she did receive pain meds by EMS which helped some but states that she has nausea at this time. - Related Data Home Medications Medication Instructions Recorded Confirmed Cimetidine [Tagamet] 200 mg PO BID PRN 03/08/19 03/10/19 Losartan Potassium [Cozaar] 100 mg PO DAILY 03/08/19 03/10/19 hydroCHLOROthiazide [Hydrodiuril] 25 mg PO DAILY 03/08/19 03/10/19 Previous Rx's Medication Instructions Recorded Acetaminophen Tab [Tylenol] 650 mg PO Q6HR PRN tab 03/11/19 Aspirin 81 mg PO DAILY chew 03/11/19 Clopidogrel [Plavix] 75 mg PO DAILY #30 tab 03/11/19 Allergies Allergy/AdvReac Type Severity Reaction Status Date / Time metronidazole [From Flagyl] Allergy Rash/Hives Verified 10/06/24 14:10 Review of Systems ROS Statement: Those systems with pertinent positive or pertinent negative responses have been documented in the HPI. ROS Other: All systems not noted in ROS Statement are negative. Past Medical History Past Medical History: Hypertension, Vascular Disorder Additional Past Medical History / Comment(s): aortic aneurysm, osteoporosis History of Any Multi-Drug Resistant Organisms: None Reported Past Surgical History: Bladder Surgery, Hysterectomy Additional Past Surgical History / Comment(s): D & C, bladder suspension Past Anesthesia/Blood Transfusion Reactions: No Reported Reaction Past Psychological History: No Psychological Hx Reported Smoking Status: Former smoker Past Alcohol Use History: None Reported Past Drug Use History: None Reported - Past Family History Mother Family Medical History: No Reported History General Exam Limitations: no limitations General appearance: alert, in no apparent distress Head exam: Present: atraumatic, normocephalic, normal inspection Eye exam: Present: normal appearance, PERRL, EOMI. Absent: scleral icterus, conjunctival injection, periorbital swelling ENT exam: Present: normal exam, normal oropharynx, mucous membranes moist Neck exam: Present: normal inspection, full ROM. Absent: tenderness, meningismus, lymphadenopathy Respiratory exam: Present: normal lung sounds bilaterally. Absent: respiratory distress, wheezes, rales, rhonchi, stridor Cardiovascular Exam: Present: regular rate, normal rhythm, normal heart sounds. Absent: systolic murmur, diastolic murmur, rubs, gallop, clicks Course Vital Signs 10/06/24 14:06 Temperature 97.5 F L Pulse Rate 66 Respiratory 18 Rate Blood Pressure 166/74 O2 Sat by Pulse 94 L Oximetry EKG Findings - EKG Comments: EKG Findings:: EKG performed at 14: 25 sinus rhythm with left bundle rate of 62 MI 171 QRS 142 QT/QTc 470/479 - EKG Results: EKG: interpreted by [facility] Medical Decision Making - Medical Decision Making Was pt. sent in by a medical professional or institution (Dr. PA, SWITCHING OPERATOR, urgent care, hospital, or shelter...) When possible be specific @ -No Did you speak to anyone other than the patient for history (EMS, parent, family, police, friend...)? What history was obtained from this source @ -No Did you review nursing and triage notes (agree or disagree)? Why? @ -I reviewed and agree with nursing and triage notes Were old charts reviewed (outside hosp., previous admission, EMS record, old EKG, old radiological studies, urgent care reports/EKG's, shelter records)? Report findings @ -No old charts were reviewed Differential Diagnosis (chest pain, altered mental status, abdominal pain women, abdominal pain men, vaginal bleeding, weakness, fever, dyspnea, syncope, headache, dizziness, GI bleed, back pain, seizure, CVA, palpatations, mental he alth, musculoskeletal)? @ -Fall, hip fracture, hip contusion, hip dislocation EKG interpreted by me (3pts min.). @ -As above X-rays interpreted by me (1pt min.). @ -X-ray chest shows no fracture no pneumothorax X-ray left hip with AP pelvis shows femoral neck fracture CT interpreted by me (1pt min.). @ -None done U/S interpreted by me (1pt. min.). @ -None done What testing was considered but not performed or refused? (CT, X-rays, U/S, labs)? Why? @ -None What meds were considered but not given or refused? Why? @ -None Did you discuss the management of the patient with other professionals (pro fessionals i.e. , PA, SWITCHING OPERATOR, lab, RT, psych nurse, social media intern, general utility machine operator, teacher, correction officer supervisor, patient case coordinator)? Give summary @ -Yin Chambers on-call for orthopedics accepts admission with medicine consult. Was smoking cessation discussed for >3mins.? @ -No Was critical care preformed (if so, how long)? @ -No Were there social determinants of health that impacted care today? How? (Homelessness, low income, unemployed, alcoholism, drug addiction, transportation, low edu. Level, literacy, decrease access to med. care, [facility], rehab)? @ -No Was there de-escalation of care discussed even if they declined (Discuss DNR or withdrawal of care, Hospice)? DNR status @ -No What co-morbidities impacted this encounter? (DM, HTN, Smoking, COPD, CAD, Cancer, CVA, ARF, Chemo, Hep., AIDS, mental health diagnosis, sleep apnea, morbid obesity)? @ -None Was patient admitted / discharged? Hospital course, mention meds given and route, prescriptions, significant lab abnormalities, going to OR and other pertinent info. @ -Admitted patient has a left hip fracture patient we admitted to orthopedics with consult to medicine Undiagnosed new problem with uncertain prognosis? @ -No Drug Therapy requiring intensive monitoring for toxicity (Heparin, Nitro, Insulin, Cardizem)? @ -No Were any procedures done? @ -No Diagnosis/symptom? @ - left hip fracture Acute, or Chronic, or Acute on Chronic? @ -Acute Uncomplicated (without systemic symptoms) or Complicated (systemic symptoms)? @ -Complicated Side effects of treatment? @ -No Exacerbation, Progression, or Severe Exacerbation? @ -No Poses a threat to life or bodily function? How? (Chest pain, [place], [place], pneumonia, PE, COPD, DKA, ARF, appy, cholecystitis, CVA, Diverticulitis, Homicidal, Suicidal, threat to staff... and all critical care pts) @ -Yes surgical risk - Lab Data Result diagrams: 04/23/25 14:18 10/06/24 14:18 Lab Results 10/06/24 10/06/24 10/06/24 Range/Units 14:18 14:18 14:18 WBC 15.39 H (4.50-10.00) 10*3/uL RBC 4.23 (4.10-5.20) 10*6/uL Hgb 14.0 (12.0-15.0) g/dL Hct 40.0 (37.2-46.3) % MCV 94.6 (80.0-97.0) fL MCH 33.1 H (27.0-32.0) pg MCHC 35.0 (32.0-37.0) g/dL Plt Count 287 (140-440) 10*3/uL MPV 10.5 (9.5-12.2) fL Immature Gran % (Auto) 1.2 % Neutrophils % 82.1 % Lymphocytes % 8.1 % Monocytes % 7.7 % Eosinophils % 0.6 % Basophils % 0.3 % Immature Gran # 0.19 H (0.00-0.04) 10*3/uL Neutrophils # 12.61 H (1.80-7.70) 10*3/uL Lymphocytes # 1.25 (0.90-5.00) 10*3/uL Monocytes # 1.19 H (0.20-1.00) 10*3/uL Eosinophils # 0.10 (0.04-0.35) 10*3/uL Basophils # 0.05 (0.00-0.10) 10*3/uL PT 11.1 (10.0-12.5) sec INR 1.0 (<1.2) APTT 22.2 (22.0-30.0) sec Sodium 133 L (137-145) mmol/L Potassium 4.3 (3.5-5.1) mmol/L Chloride 98 (98-107) mmol/L Carbon Dioxide 28 (22-30) mmol/L Anion Gap 7 mmol/L BUN 19 H (7-17) mg/dL Creatinine 0.91 (0.52-1.04) mg/dL Est GFR (CKD-EPI)AfAm 67 (>60 ml/min/1.73 sqM) Est GFR (CKD-EPI)NonAf 59 (>60 ml/min/1.73 sqM) Glucose 147 H (74-99) mg/dL Calcium 9.6 (8.4-10.2) mg/dL Total Bilirubin 1.1 (0.2-1.3) mg/dL AST 36 (14-36) U/L ALT 25 (4-34) U/L Alkaline Phosphatase 91 (38-126) U/L Total Protein 7.2 (6.3-8.2) g/dL Albumin 4.6 (3.5-5.0) g/dL Disposition Clinical Impression: Hip fracture, left Disposition: ADMITTED IP TO THIS HOSP Condition: Fair Referrals: Sunil Zuluaga DO [Primary Care Provider] - 1-2 days Time of Disposition: 15:13
[2024-10-06] MEDS ORDERED: FAMOTIDINE 20 MG TAB PO PRN (17:48)
[2024-10-06] MEDS ORDERED: ALPRAZolam 0.25 MG TAB PO PRN (17:48)
[2024-10-06] MEDS ORDERED: FLUTICASONE NASAL 50MCG/SPRAY 16GM BTL EA NOSTRIL PRN (17:48)
[2024-10-06] MEDS ORDERED: ALBUTEROL NEBULIZED 2.5 MG/3 ML INHALATION PRN (17:48)
--- NOTE | 2024-10-06 17:53 | P.HPOR ---
History of Present Illness H&P Date: 10/06/24 Chief Complaint: Left hip fracture. Cindi presents to the emergency department today after falling and sustaining injury to her left hip. She states that she was leaving the house to go shopping with her daughter and tripped and landed on her left hip. She denies head injury. She complains of pain about the left hip. On exam and x-ray she is found to have a femoral neck fracture. We are consulted for orthopedic evaluation. Past Medical History Past Medical History: Hypertension, Vascular Disorder Additional Past Medical History / Comment(s): aortic aneurysm, osteoporosis History of Any Multi-Drug Resistant Organisms: None Reported Past Surgical History: Bladder Surgery, Hysterectomy Additional Past Surgical History / Comment(s): D & C, bladder suspension Past Anesthesia/Blood Transfusion Reactions: No Reported Reaction Past Psychological History: No Psychological Hx Reported Smoking Status: Former smoker Past Alcohol Use History: None Reported Past Drug Use History: None Reported - Past Family History Mother Family Medical History: No Reported History Medications and Allergies Home Medications Medication Instructions Recorded Confirmed Type Acetaminophen Tab [Tylenol] 650 mg PO Q6HR PRN tab 03/11/19 10/06/24 Rx Aspirin 81 mg PO DAILY chew 03/11/19 10/06/24 Rx Clopidogrel [Plavix] 75 mg PO DAILY #30 tab 03/11/19 10/06/24 Rx ALPRAZolam [Xanax] 0.25 mg PO BID PRN 10/06/24 10/06/24 History Albuterol Sulfate [Ventolin HFA] 2 puff INHALATION RT-QID PRN 10/06/24 10/06/24 History Atorvastatin [Lipitor] 40 mg PO DAILY 10/06/24 10/06/24 History Calcium Carbonate [Calcium] 600 mg PO DAILY 10/06/24 10/06/24 History Cephalexin [Keflex] 500 mg PO DAILY 10/06/24 10/06/24 History Ergocalciferol [Vitamin D2 (1250 1,250 mcg PO Q30D 10/06/24 10/06/24 History Mcg = 51402 Iu)] Estradiol Cream [Estrace Cream 0.5 gm VAGINAL MOWEFR 10/06/24 10/06/24 History 0.01%] Famotidine [Pepcid] 20 mg PO DAILY PRN 10/06/24 10/06/24 History Fluticasone Nasal [place] [Flonase 1 spray EA NOSTRIL DAILY PRN 10/06/24 10/06/24 History Nasal [place]] L.acidoph,Paracasei, B.lactis 1 cap PO DAILY 10/06/24 10/06/24 History [Probiotic] Metoprolol Succinate (ER) [Toprol 50 mg PO DAILY 10/06/24 10/06/24 History Xl] hydrALAZINE HCL [Apresoline] 50 mg PO TID 10/06/24 10/06/24 History Allergies Allergy/AdvReac Type Severity Reaction Status Date / Time metronidazole [From Flagyl] Allergy Rash/Hives Verified 10/06/24 16:53 Physical Examination This is a pleasant 83-year-old female in no acute distress. She is alert and oriented x 3. Exam of the head neck revealed no obvious deformity. She has full cervical spine motion without difficulty or pain. She is nontender over the cervical spine with palpation. Exam of the upper extremities is unremarkable. She has full range of motion of the shoulders, elbows, wrist and fingers bilaterally. Neurovascular status to the upper extremities is intact. Exam of the lower extremities reveals shortening and external rotation to the left leg. She has full foot and ankle motion bilaterally. Neurovascular status to the lower extremities is intact. Results X-rays of the pelvis and left hip reveal a displaced femoral neck fracture of the left hip. No other bony abnormalities or fractures noted. - Labs Labs: Abnormal Lab Results - Last 24 Hours (Table) 10/06/24 10/06/24 Range/Units 14:18 14:18 WBC 15.39 H (4.50-10.00) 10*3/uL MCH 33.1 H (27.0-32.0) pg Immature Gran # 0.19 H (0.00-0.04) 10*3/uL Neutrophils # 12.61 H (1.80-7.70) 10*3/uL Monocytes # 1.19 H (0.20-1.00) 10*3/uL Sodium 133 L (137-145) mmol/L BUN 19 H (7-17) mg/dL Glucose 147 H (74-99) mg/dL H & H 10/06/24 Range/Units 14:18 Hgb 14.0 (12.0-15.0) g/dL Hct 40.0 (37.2-46.3) % Coagulation 10/06/24 Range/Units 14:18 INR 1.0 (<1.2) Result Diagrams: 10/06/24 14:18 10/06/24 14:18 Assessment and Plan (1) Fracture of femoral neck, left Current Visit: Yes Status: Acute Code(s): S72.002A - FRACTURE OF UNSP PART OF NECK OF LEFT FEMUR, INIT SNOMED Code(s): 7224024 (2) Hip fracture, left Current Visit: Yes Status: Acute Code(s): S72.002A - FRACTURE OF UNSP PART OF NECK OF LEFT FEMUR, INIT SNOMED Code(s): 303661940 Plan: The clinical and x-ray findings are discussed with the patient. It is recommended she be admitted for surgical intervention. We discussed treatment with hemiarthroplasty of the left hip. The procedure was discussed in detail including the possible risks and outcomes. We discussed the possibility of the need for inpatient rehab postoperatively. The patient is on Plavix which will be held until after surgery. We are planning surgery Friday allowing a day for medical clearance.
[2024-10-06] MEDS: HYDROmorphone 0.5 MG/0.5 ML SYRINGE IVP PRN (18:02)
--- NOTE | 2024-10-06 21:15 | P.CONS ---
History of Present Illness - Reason for Consult Consult date: 10/06/24 medical co-management - Chief Complaint fall - History of Present Illness Cindi is a 83-year-old female with past medical history of AAA status post repair and stenting of the left common iliac artery and right iliac artery in 2019. She presents to the hospital today complaining of a fall. She endorses that she was in her usual state of health up until today. She reports that her daughter was waiting in the car to go to [facility] for groceries and she reports that she tripped on her shoes and had fallen on her left hip. She reports she is on aspirin and clopidogrel as per recommendations from vascular surgery from last year. She reports she was unable to get off the floor and she had to call her daughter for assistance. EMS was then called with brought the patient to the hospital further evaluation When the patient had presented to hospital she was hemodynamically stable afebrile was 92% room air. Lab work revealed a white blood cell count 15 hemoglobin is 14 platelet count was 287 INR was 1.0 CMP had revealed a creatinine of 0.9 BUN was 19. EKG had revealed normal sinus rhythm with left bundle branch block. Left bundle branch block appears chronic as can be seen on EKG from 2019. The patient endorses that she had a stress test in 2019 that revealed no evidence of ischemia. I am unable to verify this stress test on file. The patient is currently seen in room 458. As per review of orthopedic notes surgery scheduled for Friday Review of Systems Pertinent positives and negatives as discussed in HPI, a complete review of systems was performed and all other systems are negative. Past Medical History Past Medical History: COPD, Hyperlipidemia, Hypertension, Renal Disease, Vascular Disorder Additional Past Medical History / Comment(s): aortic aneurysm, osteoporosis History of Any Multi-Drug Resistant Organisms: None Reported Past Surgical History: Bladder Surgery, Hysterectomy Additional Past Surgical History / Comment(s): D & C, bladder suspension, aortic aneurysm repair with AF2 device and transluminal stenting, Past Anesthesia/Blood Transfusion Reactions: No Reported Reaction Past Psychological History: Anxiety Smoking Status: Former smoker Past Alcohol Use History: None Reported Additional Past Alcohol Use History / Comment(s): quit smoking >1 year ago, smoked on & off 20 yrs. Past Drug Use History: None Reported - Past Family History Mother Family Medical History: No Reported History Medications and Allergies Home Medications Medication Instructions Recorded Confirmed Type Acetaminophen Tab [Tylenol] 650 mg PO Q6HR PRN tab 03/11/19 10/06/24 Rx Aspirin 81 mg PO DAILY chew 03/11/19 10/06/24 Rx Clopidogrel [Plavix] 75 mg PO DAILY #30 tab 03/11/19 10/06/24 Rx ALPRAZolam [Xanax] 0.25 mg PO BID PRN 10/06/24 10/06/24 History Albuterol Sulfate [Ventolin HFA] 2 puff INHALATION RT-QID PRN 10/06/24 10/06/24 History Atorvastatin [Lipitor] 40 mg PO DAILY 10/06/24 10/06/24 History Calcium Carbonate [Calcium] 600 mg PO DAILY 10/06/24 10/06/24 History Cephalexin [Keflex] 500 mg PO DAILY 10/06/24 10/06/24 History Ergocalciferol [Vitamin D2 (1250 1,250 mcg PO Q30D 10/06/24 10/06/24 History Mcg = 03570 Iu)] Estradiol Cream [Estrace Cream 0.5 gm VAGINAL MOWEFR 10/06/24 10/06/24 History 0.01%] Famotidine [Pepcid] 20 mg PO DAILY PRN 10/06/24 10/06/24 History Fluticasone Nasal [place] [Flonase 1 spray EA NOSTRIL DAILY PRN 10/06/24 10/06/24 History Nasal [place]] L.acidoph,Paracasei, B.lactis 1 cap PO DAILY 10/06/24 10/06/24 History [Probiotic] Metoprolol Succinate (ER) [Toprol 50 mg PO DAILY 10/06/24 10/06/24 History Xl] hydrALAZINE HCL [Apresoline] 50 mg PO TID 10/06/24 10/06/24 History Allergies Allergy/AdvReac Type Severity Reaction Status Date / Time metronidazole [From Flagyl] Allergy Rash/Hives Verified 10/06/24 16:53 Physical Exam Vitals: Vital Signs Temp Pulse Pulse Resp BP BP Pulse Ox 10/06/24 19:04 97.3 F L 77 17 171/69 92 L 10/06/24 17:34 97.4 F L 80 20 173/89 97 10/06/24 16:16 75 18 174/69 95 10/06/24 14:06 97.5 F L 66 18 166/74 94 L Intake and Output 10/06/24 10/06/24 10/06/24 06:59 14:59 22:59 Other: # Voids 0 # Bowel Movements 1 Weight 54.431 kg 54.431 kg General: non toxic, no distress, female appears stated age. Derm: warm, dry Head: atraumatic, normocephalic, symmetric Eyes: EOMI, no lid la ENT: Nose and ears atraumatic, no thrush, no pharyngeal erythema Neck: No thyromegaly, no cervical lymphadenopathy, trachea midline, supple Mouth: no lip lesion, mucus membranes moist Cardiovascular: S1S2 reg, no murmur, Lungs: clear to ascultation bilateral, no ronchi, no rales, no wheeze, no accessory muscle use Abdominal: soft, nontender to palpation, no guarding, no appreciable organomegaly, normal bowel sounds Ext: left lower extremity is externally rotated and appears shorter than right lower extremity Neuro: Moving all extremity spontaneous Psych: Alert, oriented, appropriate affect Results CBC & Chem 7: 10/06/24 14:18 10/06/24 14:18 Labs: Abnormal Lab Results - Last 24 Hours (Table) 10/06/24 10/06/24 Range/Units 14:18 14:18 WBC 15.39 H (4.50-10.00) 10*3/uL MCH 33.1 H (27.0-32.0) pg Immature Gran # 0.19 H (0.00-0.04) 10*3/uL Neutrophils # 12.61 H (1.80-7.70) 10*3/uL Monocytes # 1.19 H (0.20-1.00) 10*3/uL Sodium 133 L (137-145) mmol/L BUN 19 H (7-17) mg/dL Glucose 147 H (74-99) mg/dL Assessment and Plan Assessment: #) Left subcapital femoral neck fracture after a fall. Surgery scheduled for friday. continue strict bedrest status. check echo in am for further cardiac risk stratification. Pain control with prn iv hydromprhone #) AAA s/p repair in 2019 #) PAD with hx stenting of the left common iliac artery and right iliac artery in 2019. Continue asa 81 mg daily. hold clopedigrol at this time. continue atorvastatin 40 mg daily for ASCVD #) generalized anxiety disorder continue home alprazolam 0.25 mg bid prn #) Primary htn continue home metprolol succinate 50 mg daily Thank you for allowing [facility] to take care of this patient. please do not hesitate to contact us for any further questions. Time with Patient: Greater than 30
[2024-10-06] MEDS: hydrALAZINE HCL 50 MG TAB PO SCH (22:47)
[2024-10-06] MEDS: ONDANSETRON 4 MG/2 ML VIAL IVP PRN (23:03)
[2024-10-07] MEDS: METOCLOPRAMIDE 5 MG/ML 2 ML VIAL IVP STA (03:01)
[2024-10-07 08:32] LABS: HCT 40.4 % (37.2-46.3); HGB 13.6 g/dL (12.0-15.0); MCH 32.5 pg (27.0-32.0); MCHC 33.7 g/dL (32.0-37.0); MCV 96.4 FL (80.0-97.0); Mean Platelet Volume 10.3 FL (9.5-12.2); NRBC Per 100 WBC 0 X 10*3/uL (0.00-0.01); Platelet Count 261 X 10*3/uL (140-440); RBC 4.19 X 10*6/uL (4.10-5.20); RDW 13.4 % (11.5-14.5)
[2024-10-07 09:09] LABS: BUN/Creat Ratio 16.56 Ratio (12.00-20.00); Blood Urea Nitrogen 14.9 mg/dL (9.0-27.0); Calcium 9.5 mg/dL (8.7-10.3); Carbon Dioxide 23.3 mmol/L (21.6-31.8); Chloride 96 mmol/L (96-109); Glucose 185 mg/dL (70-110); Magnesium 1.7 mg/dL (1.5-2.4); Potassium 4.5 mmol/L (3.5-5.5); Sodium 133 mmol/L (135-145)
--- NOTE | 2024-10-07 09:32 | P.PN ---
Subjective Progress Note Date: 10/07/24 Principal diagnosis: Left hip fracture. Cindi presents to the emergency department today after falling and sustaining injury to her left hip. She states that she was leaving the house to go shopping with her daughter and tripped and landed on her left hip. She denies head injury. She complains of pain about the left hip. On exam and x-ray she is found to have a femoral neck fracture. We are consulted for orthopedic evaluation. 10/07/2024: The patient is stable from an orthopedic standpoint. No new complaints or concerns today. Vital signs are stable. Objective - Vital Signs Vital signs: Vital Signs Temp 98.6 F 10/07/24 07:18 Pulse 70 10/07/24 07:18 Resp 17 10/07/24 07:18 BP 136/68 10/07/24 07:18 Pulse Ox 96 10/07/24 07:18 FiO2 Intake & Output 10/06/24 10/07/24 10/07/24 18:59 06:59 18:59 Weight 54.431 kg Other: Voiding Method External Catheter # Voids 0 2 # Bowel Movements 1 1 1 - Exam This is an 83-year-old female in no acute distress. She is alert and oriented x 3. Exam of the left hip reveals shortening of the lower extremity and external rotation. She has full foot and ankle motion without difficulty or pain. Neurovascular status to the lower extremities is intact. - Labs CBC & Chem 7: 10/07/24 04:52 10/07/24 04:52 Labs: Abnormal Lab Results - Last 24 Hours (Table) 10/06/24 10/06/24 10/07/24 Range/Units 14:18 14:18 04:52 WBC 15.39 H 18.30 H (4.50-10.00) 10*3/uL MCH 33.1 H 32.5 H (27.0-32.0) pg Immature Gran # 0.19 H (0.00-0.04) 10*3/uL Neutrophils # 12.61 H (1.80-7.70) 10*3/uL Monocytes # 1.19 H (0.20-1.00) 10*3/uL Sodium 133 L (137-145) mmol/L Anion Gap (4.00-12.00) mmol/L BUN 19 H (7-17) mg/dL Glucose 147 H (74-99) mg/dL // Range/Units 04:52 WBC (4.50-10.00) 10*3/uL MCH (27.0-32.0) pg Immature Gran # (0.00-0.04) 10*3/uL Neutrophils # (1.80-7.70) 10*3/uL Monocytes # (0.20-1.00) 10*3/uL Sodium 133 L (137-145) mmol/L Anion Gap 13.70 H (4.00-12.00) mmol/L BUN (7-17) mg/dL Glucose 185 H (74-99) mg/dL Assessment and Plan (1) Fracture of femoral neck, left Current Visit: Yes Status: Acute Code(s): S72.002A - FRACTURE OF UNSP PART OF NECK OF LEFT FEMUR, INIT SNOMED Code(s): 2390120 (2) Hip fracture, left Current Visit: Yes Status: Acute Code(s): S72.002A - FRACTURE OF UNSP PART OF NECK OF LEFT FEMUR, INIT SNOMED Code(s): 923400234 Plan: The clinical and x-ray findings are discussed with the patient. We are planning hemiarthroplasty of the left hip tomorrow. Awaiting echocardiogram and final medical clearance.
[2024-10-07] MEDS: ATORVASTATIN 40 MG TAB PO SCH (09:54)
[2024-10-07] MEDS: CALCIUM CARBONATE 500 MG CHEWABLE PO SCH (09:54)
[2024-10-07] MEDS: METOPROLOL SUCCINATE (ER) 50 MG TAB.ER.24H PO SCH (09:54)
[2024-10-07] MEDS: MAGNESIUM SULFATE-D5W PMX 1 GM in DEXTROSE/WATER 1 100ML.BAG IVPB SCH (09:58)
[2024-10-07] MEDS: LACTOBACILLUS ACIDOPHILUS/PECT 1 EACH CAPSULE PO SCH (09:58)
[2024-10-07] MEDS: FAMOTIDINE 20 MG TAB PO SCH (10:14)
[2024-10-07 10:30] LABS: Appearance,Urine Clear (Clear); Bacteria,Urine Rare /hpf; Bilirubin,Urine Negative (Negative); Blood,Urine Negative (Negative); Color,Urine Yellow; Glucose,Urine (UA) 2+ (Negative); Ketones,Urine Negative (Negative); Leukocyte Esterase,Urine Negative (Negative); Mucus,Urine Rare /hpf; Nitrite,Urine Negative (Negative); PH, Urine 6.5 (5.0-8.0); Protein,Urine 1+ (Negative); RBC,Urine 1 /hpf (0-5); Specific Gravity,Urine 1.021 (1.001-1.035); Squamous Epithelial Cell,Urine 1 /hpf (0-4); Urobilinogen,Urine <2.0 mg/dL (<2.0); WBC,Urine 2 /hpf (0-5)
[2024-10-07 14:36] LABS: Glucose,Whole Blood 142 mg/dL (70-110)
[2024-10-07] MEDS: KETOROLAC 15 MG/ML 1 ML VIAL IVP STA (15:14)
--- NOTE | 2024-10-07 16:19 | P.PN ---
Subjective Progress Note Date: 10/07/24 Hospital course: Patient is a pleasant 83-year-old female with a past medical history of AAA status postrepair with AF to device and transluminal stenting and stenting of left common iliac artery and right iliac artery, left bundle branch block, hypertension, hyperlipidemia,, COPD, and osteoporosis. She presented to the hospital on 10/06/2024 status post fall. Upon arrival to our facility, patient underwent evaluation in the emergency department. Vital signs upon show blood pressure 166/74, heart rate 66, respiratory rate 18, temp 97.5 F, and SpO2 of 94% on room air EKG completed showing normal sinus rhythm at 62 bpm with a left bundle branch block (left bundle branch block is a known and unchanged finding when compared to EKG completed 03/10/2019). Chest x-ray was completed negative for acute process. X-ray left hip and pelvis showing acute moderately displaced left subcapital femoral fracture. Labs were completed and reviewed. CBC showing leukocytosis with WBC count of 15.39. Coagulation profile normal findings. BMP showing hyponatremia with sodium of 133 and mild prerenal azotemia with BUN of 19. Blood glucose 147. Calcium 9.6. Liver profile unremarkable. Patient was admitted under orthopedic surgery team and we were consulted for medical clearance and medical management throughout hospitalization. Physical exam: Patient seen and fully evaluated at bedside this morning. She was resting comfortably and denied having any complaints at this time. She reports pain in left hip and leg is currently controlled as long as she does not move. She denies having any numbness or tingling. She is urinating without any difficulties with external catheter. Denies any nausea or vomiting. Does report not having much of an appetite at this time but otherwise denies any complaints at this time. Vital signs reviewed and stable. General: Nontoxic, no distress and appears stated age. Thin and frail. Derm: Skin warm and dry, normal coloration for ethnicity. Head: Atraumatic, normocephalic and symmetric. Eyes: EOM's intact, no lid lag, and anicteric sclera Mouth: no lip lesions, mucus membranes moist Cardiovascular: regular rate and rhythm with normal S1S2, systolic murmur, posi tive posterior tibial pulses bilaterally, and cap refill < 2 seconds. Lungs: Respirations even, regular, and unlabored on room air. Lungs CTA bilaterally, no rhonchi, no rales, no wheezing, and no accessory muscle usage. Abdominal: soft, nontender to palpation, no guarding, no appreciable organom egaly Ext: No gross muscle atrophy, no edema, no contractures. Movement and sensation intact. Left lower extremity with shortening and left lateral rotation. Neuro: Speech clear, face symmetrical and CN II-XII grossly intact with no noted focal neuro deficits Psych: Alert and oriented to person, place, time, and situation. Appropriate and pleasant affect. Assessment and Plan of Care: Preoperative clearance Acute moderately displaced left subcapital femoral fracture -EKG completed and reviewed showing normal sinus rhythm at 62 bpm with a left bundle branch block (left bundle branch block is a known and unchanged finding when compared to EKG completed 03/10/2019). -NSQIP surgical risk calculator completed. Patient is in a slightly elevated risk for serious complication at 14.9% with average risk being 13.9% for serious complication, average risk for cardiac complication at 1.9% with average risk being 2.4%, and below average risk of at 3.1% with average risk of 3.7%. -Echocardiogram was ordered, but no need to delay urgent repair of left femoral hip fracture while awaiting results. -Would not recommend delay of surgery secondary to Plavix administration on 10/05/2024, however orthopedic surgery stated patient is not to undergo surgical procedure until 10/08/2024 per guidelines of anesthesiology -Patient is at an elevated risk to undergo any surgical procedure secondary to her age and underlying comorbidities, however there are no absolute contraindications for her to undergo urgent need for femoral fracture repair at this time. Patient is hemodynamically stable and medically optimized to undergo planned left hip hemiarthroplasty. -Recommend telemetry monitoring preoperatively, intraoperatively, and postoperatively and resumption of dual antiplatelet therapy with aspirin and Plavix once cleared by orthopedic surgery team. History of AAA status postrepair with AF to device and transluminal stenting and stenting of left common iliac artery and right iliac artery Known left bundle branch block Hypertension Hyperlipidemia -Aspirin and Plavix held pending clearance from orthopedic surgery team to resume. Patient to otherwise continue daily medication regimen with atorvastatin 40 mg daily, hydralazine 50 mg 3 times daily, and metoprolol 50 mg daily. -Telemetry monitoring. Hypomagnesemia -Magnesium 1.7. Orders placed for magnesium sulfate 2 g IVPB. Leukocytosis -Believed to be reactive secondary to acute moderately displaced left femoral fracture. No signs of infection at this time. Will continue to monitor for improvement/resolution with repeat morning labs. COPD, not in acute exacerbation - Continue Ventolin nebulizers 4 times daily as needed for wheezing/shortness of breath. Patient to be provided with supplemental oxygen as needed to maintain SpO2 equal to or greater than 90%. Data and imaging reviewed: -Morning labs reviewed. CBC showing leukocytosis with WBC count of 18.30. BMP showing hyponatremia with sodium of 133 and elevated anion gap of 13.70. Blood glucose 185. Magnesium 1.7 - Vital signs reviewed. Blood pressure 136/68, heart rate 70, respiratory rate 17, temp 98.6 F, and SpO2 of 96% on room air. Thank you for allowing us to participate in the care of this pleasant patient. Do not hesitate to contact us with questions. [facility] all hours of the day at [phone] or via [employer]. Patient was seen independently by Nurse Pracitioner. This document was prepared using [employer] dictation software. Please allow for errors in recovery room nurse, while rare they do occur. Adam Patino NP rendered care for this patient independently, reviewed the findings and plan as documented in the note above and agree with plan. I did not physically speak with or examine the patient on this date. Objective - Vital Signs Vital signs: Vital Signs Temp 98.6 F 10/07/24 07:18 Pulse 70 10/07/24 07:18 Resp 17 10/07/24 07:18 BP 136/68 10/07/24 07:18 Pulse Ox 96 10/07/24 07:18 FiO2 Intake & Output 10/06/24 10/07/24 10/07/24 18:59 06:59 18:59 Weight 54.431 kg Other: Voiding Method External Catheter # Voids 0 2 # Bowel Movements 1 1 1 - Labs CBC & Chem 7: 10/07/24 04:52 10/07/24 04:52 Labs: Abnormal Lab Results - Last 24 Hours (Table) 10/06/24 10/06/24 10/07/24 Range/Units 14:18 14:18 04:52 WBC 15.39 H 18.30 H (4.50-10.00) 10*3/uL MCH 33.1 H 32.5 H (27.0-32.0) pg Immature Gran # 0.19 H (0.00-0.04) 10*3/uL Neutrophils # 12.61 H (1.80-7.70) 10*3/uL Monocytes # 1.19 H (0.20-1.00) 10*3/uL Sodium 133 L (137-145) mmol/L Anion Gap (4.00-12.00) mmol/L BUN 19 H (7-17) mg/dL Glucose 147 H (74-99) mg/dL // Range/Units 04:52 WBC (4.50-10.00) 10*3/uL MCH (27.0-32.0) pg Immature Gran # (0.00-0.04) 10*3/uL Neutrophils # (1.80-7.70) 10*3/uL Monocytes # (0.20-1.00) 10*3/uL Sodium 133 L (137-145) mmol/L Anion Gap 13.70 H (4.00-12.00) mmol/L BUN (7-17) mg/dL Glucose 185 H (74-99) mg/dL
--- NOTE | 2024-10-07 16:45 | CA ---
Transthoracic Echo Report Name: Cindi Boo Age: 83 Gender: F : 1940 Exam Date: 10/07/2024 10:31 Exam Location: [facility] Ht (in): 63 Wt (lb): 120 Ordering Physician: Calixto Ellison MD Attending/Referring Phys: Elocution Teacher Becca Dey RDCS Procedure CPT: Indications: cardiac risk stratification Cardiac Hx: Technical Quality: Good Contrast 1: Total Dose (mL): Contrast 2: Total Dose (mL): MEASUREMENTS (Male / Female) Normal Values 2D ECHO LV Diastolic Diameter PLAX 4.3 cm 4.2 - 5.9 / 3.9 - 5.3 cm LV Systolic Diameter PLAX 2.9 cm IVS Diastolic Thickness 1.2 cm 0.6 - 1.0 / 0.6 - 0.9 cm LVPW Diastolic Thickness 1.0 cm 0.6 - 1.0 / 0.6 - 0.9 cm LV Relative Wall Thickness 0.5 LVOT Diameter 2.0 cm Aortic Root Diameter 2.9 cm LA Systolic Diameter LX 3.9 cm 3.0 - 4.0 / 2.7 - 3.8 cm LV Diastolic Volume MOD 4C 52.6 cm??? LV Systolic Volume MOD 4C 17.8 cm??? LV Ejection Fraction MOD 4C 66.2 % LV Cardiac Index MOD 4C 1455.0 cm???/min???m??? LV Diastolic Length 4C 6.5 cm LV Systolic Length 4C 4.9 cm LV Cardiac Index 4C AL 1598.7 cm???/min???m??? LV Diastolic Volume MOD 2C 52.5 cm??? LV Systolic Volume MOD 2C 21.9 cm??? LV Ejection Fraction MOD 2C 58.3 % LV Cardiac Index MOD 2C 1276.8 cm???/min???m??? LV Diastolic Length 2C 6.6 cm LV Systolic Length 2C 4.8 cm LV Cardiac Index 2C AL 1225.5 cm???/min???m??? Ascending Aorta Diameter 2.5 cm DOPPLER AV Peak Velocity 173.0 cm/s AV Peak Gradient 12.0 mmHg AV Mean Velocity 103.9 cm/s AV Mean Gradient 5.3 mmHg AV Velocity Time Integral 34.6 cm LVOT Peak Velocity 114.3 cm/s LVOT Peak Gradient 5.2 mmHg LVOT Velocity Time Integral 24.3 cm LVOT Stroke Volume 78.9 cm??? LVOT Stroke Volume Index 50.7 ml/m??? LVOT Cardiac Index 3294.3 cm???/min???m??? AV Area Cont Eq vti 2.3 cm??? AV Area Cont Eq pk 2.1 cm??? Mitral E Point Velocity 113.6 cm/s Mitral A Point Velocity 119.6 cm/s Mitral E to A Ratio 0.9 MV Deceleration Time 296.3 ms MV E' Velocity 2.9 cm/s Mitral E to MV E' Ratio 39.7 LV E' Lateral Velocity 3.8 cm/s Mitral E to LV E' Lateral Ratio 30.1 TR Peak Velocity 308.6 cm/s TR Peak Gradient 38.1 mmHg Right Atrial Pressure 5.0 mmHg Pulmonary Artery Systolic Pressu 43.1 mmHg Right Ventricular Systolic Press 43.1 mmHg PV Peak Velocity 91.8 cm/s PV Peak Gradient 3.4 mmHg FINDINGS Left Ventricle Left ventricular ejection fraction is estimated at 55-60 %. Mildly increased septal wall thickness. Left ventricular cavity size normal. No obvious regional wall motion abnormalities. Right Ventricle Right ventricular dilatation. Normal right ventricular global systolic function. Right Atrium Right atrial dilatation. Left Atrium Mildly increased left atrial diameter. Mildly increased left atrial area. Mitral Valve Mitral valve thickened. Mitral annular calcification. No evidence for mitral valve prolapse. No mitral stenosis. mild mitral regurgitation. Aortic Valve Trileaflet aortic valve. Diffuse thickening (sclerosis) of the aortic valve cusps without reduced excursion. No aortic stenosis. No aortic regurgitation. Moderate aortic sclerosis Tricuspid Valve Structurally normal tricuspid valve. No tricuspid stenosis. Moderate tricuspid regurgitation. Pulmonic Valve Pulmonic valve not well visualized. No pulmonic stenosis. Trace pulmonic regurgitation. Pericardium No pericardial effusion. Aorta Aortic annulus normal. CONCLUSIONS 1. Normal left ventricular size and systolic function 2. Mild mitral regurgitation 3. Moderate tricuspid regurgitation with mild pulmonary hypertension Previewed by: Dr. Aydin Chavez MD (Electronically Signed) Final Date: 07 October 2024 16:44
[2024-10-07] MEDS: HYDROcodone/APAP 5-325MG 1 EACH TAB PO PRN (23:30)
[2024-10-08 08:01] LABS: HCT 37.7 % (37.2-46.3); HGB 12.5 g/dL (12.0-15.0); MCH 32.1 pg (27.0-32.0); MCHC 33.2 g/dL (32.0-37.0); MCV 96.7 FL (80.0-97.0); Mean Platelet Volume 10.5 FL (9.5-12.2); NRBC Per 100 WBC 0 X 10*3/uL (0.00-0.01); Platelet Count 232 X 10*3/uL (140-440); RDW 13.5 % (11.5-14.5); WBC 17.09 X 10*3/uL (4.50-10.00)
[2024-10-08 08:25] LABS: BUN/Creat Ratio 20.22 Ratio (12.00-20.00); Blood Urea Nitrogen 18.2 mg/dL (9.0-27.0); Calcium 8.9 mg/dL (8.7-10.3); Carbon Dioxide 21.5 mmol/L (21.6-31.8); Chloride 90 mmol/L (96-109); Glucose 99 mg/dL (70-110); Magnesium 2.1 mg/dL (1.5-2.4); Potassium 4.4 mmol/L (3.5-5.5); Sodium 124 mmol/L (135-145)
[2024-10-08] MEDS: SODIUM CHLORIDE 0.9% 1,000 ML IV SCH (09:44)
[2024-10-08 11:14] LABS: African American GFR (CKD) 71 (>60 ml/min/1.73 sqM); Anion Gap 7 mmol/L; Blood Urea Nitrogen 18 mg/dL (7-17); Calcium 9.4 mg/dL (8.4-10.2); Carbon Dioxide 26 mmol/L (22-30); Chloride 92 mmol/L (98-107); Glucose 111 mg/dL (74-99); Non-African American GFR(CKD) 61 (>60 ml/min/1.73 sqM); Potassium 4.2 mmol/L (3.5-5.1); Sodium 125 mmol/L (137-145)
--- NOTE | 2024-10-08 11:48 | P.PN ---
Subjective Progress Note Date: 10/08/24 Hospital course: Patient is a pleasant 83-year-old female with a past medical history of AAA status postrepair with AF to device and transluminal stenting and stenting of left common iliac artery and right iliac artery, left bundle branch block, hypertension, hyperlipidemia,, COPD, and osteoporosis. She presented to the hospital on 10/06/2024 status post fall. Upon arrival to our facility, patient underwent evaluation in the emergency department. Vital signs upon show blood pressure 166/74, heart rate 66, respiratory rate 18, temp 97.5 F, and SpO2 of 94% on room air EKG completed showing normal sinus rhythm at 62 bpm with a left bundle branch block (left bundle branch block is a known and unchanged finding when compared to EKG completed 03/10/2019). Chest x-ray was completed negative for acute process. X-ray left hip and pelvis showing acute moderately displaced left subcapital femoral fracture. Labs were completed and reviewed. CBC showing leukocytosis with WBC count of 15.39. Coagulation profile normal findings. BMP showing hyponatremia with sodium of 133 and mild prerenal azotemia with BUN of 19. Blood glucose 147. Calcium 9.6. Liver profile unremarkable. Patient was admitted under orthopedic surgery team and we were consulted for medical clearance and medical management throughout hospitalization. Physical exam: Patient seen and fully evaluated at bedside this morning. She was resting comfortably and denied having any complaints at this time. She reports pain in left hip and leg is currently controlled as long as she does not move. She denies having any numbness or tingling. She is urinating without any difficulties with external catheter. Denies any nausea or vomiting. Awaiting to go down for surgical intervention later today. Vital signs reviewed and stable. General: Nontoxic, no distress and appears stated age. Thin and frail. Derm: Skin warm and dry, normal coloration for ethnicity. Head: Atraumatic, normocephalic and symmetric. Eyes: EOM's intact, no lid lag, and anicteric sclera Mouth: no lip lesions, mucus membranes moist Cardiovascular: regular rate and rhythm with normal S1S2, systolic murmur, positive posterior tibial pulses bilaterally, and cap refill < 2 seconds. Lungs: Respirations even, regular, and unlabored on room air. Lungs CTA handy aterally, no rhonchi, no rales, no wheezing, and no accessory muscle usage. Abdominal: soft, nontender to palpation, no guarding, no appreciable organomegaly Ext: No gross muscle atrophy, no edema, no contractures. Movement and sensation intact. Left lower extremity with shortening and left lateral rotation. Neuro: Speech clear, face symmetrical and CN II-XII grossly intact with no noted focal neuro deficits Psych: Alert and oriented to person, place, time, and situation. Appropriate and pleasant affect. Assessment and Plan of Care: Preoperative clearance Acute moderately displaced left subcapital femoral fracture -EKG completed and reviewed showing normal sinus rhythm at 62 bpm with a left bundle branch block (left bundle branch block is a known and unchanged finding when compared to EKG completed 03/10/2019). -NSQIP surgical risk calculator completed. Patient is in a slightly elevated risk for serious complication at 14.9% with average risk being 13.9% for serious complication, average risk for cardiac complication at 1.9% with average risk being 2.4%, and below average risk of at 3.1% with average risk of 3.7%. -Echocardiogram was ordered, but no need to delay urgent repair of left femoral hip fracture while awaiting results. -Would not recommend delay of surgery secondary to Plavix administration on 10/05/2024, however orthopedic surgery stated patient is not to undergo surgical procedure until 10/08/2024 per guidelines of anesthesiology -Patient is at an elevated risk to undergo any surgical procedure secondary to her age and underlying comorbidities, however there are no absolute contraindications for her to undergo urgent need for femoral fracture repair at this time. Patient is hemodynamically stable and medically optimized to undergo planned left hip hemiarthroplasty. -Recommend telemetry monitoring preoperatively, intraoperatively, and postoperatively and resumption of dual antiplatelet therapy with aspirin and Plavix once cleared by orthopedic surgery team. History of AAA status postrepair with AF to device and transluminal stenting and stenting of left common iliac artery and right iliac artery Known left bundle branch block Hypertension Hyperlipidemia -Aspirin and Plavix held pending clearance from orthopedic surgery team [facility]. Patient to otherwise continue daily medication regimen with atorvastatin 40 mg daily, hydralazine 50 mg 3 times daily, and metoprolol 50 mg daily. -Telemetry monitoring. Hypomagnesemia -Magnesium 1.7. Orders placed for magnesium sulfate 2 g IVPB. Leukocytosis -Believed to be reactive secondary to acute moderately displaced left femoral fracture. No signs of infection at this time. Will continue to monitor for improvement/resolution with repeat morning labs. COPD, not in acute exacerbation - Continue Ventolin nebulizers 4 times daily as needed for wheezing/shortness of breath. Patient to be provided with supplemental oxygen as needed to maintain SpO2 equal to or greater than 90%. Data and imaging reviewed: -Vital signs reviewed. Blood pressure 130/62, heart rate 80, respiratory rate 20, temp 98.8 F, and SpO2 of 93% on room air Thank you for allowing us to participate in the care of this pleasant patient. Do not hesitate to contact us with questions. Someone can be reached from the [facility] hospitalist group all hours of the day at [phone] or via [employer]. Patient was seen independently by Nurse Pracitioner. This document was prepared using [employer] dictation software. Please allow for errors in is consultant, while rare they do occur. Adam Patino NP rendered care for this patient independently, reviewed the findings and plan as documented in the note above and agree with plan. I did not physically speak with or examine the patient on this date. Objective - Vital Signs Vital signs: Vital Signs Temp 99.1 F 10/08/24 07:35 Pulse 73 10/08/24 07:35 Resp 17 10/08/24 07:35 BP 160/77 10/08/24 07:35 Pulse Ox 91 L 10/08/24 07:35 FiO2 Intake & Output 10/07/24 10/08/24 10/08/24 18:59 06:59 18:59 Output Total 400 400 Balance -400 -400 Output: Urine 400 400 Other: Voiding Method External Catheter # Bowel Movements 1 - Labs CBC & Chem 7: 10/08/24 03:29 10/08/24 10:45 Labs: Abnormal Lab Results - Last 24 Hours (Table) 10/06/24 10/07/24 10/07/24 Range/Units 09:55 04:52 14:34 WBC (4.50-10.00) X 10*3/uL RBC (4.10-5.20) X 10*6/uL MCH (27.0-32.0) pg Sodium 133 L (135-145) mmol/L Chloride (96-109) mmol/L Carbon Dioxide (21.6-31.8) mmol/L Anion Gap 13.70 H (4.00-12.00) mmol/L BUN/Creatinine Ratio (12.00-20.00) Ratio Glucose 185 H (70-110) mg/dL POC Glucose (mg/dL) 142 H (70-110) mg/dL Urine Protein 1+ H (Negative) Urine Glucose (UA) 2+ H (Negative) Urine Bacteria Rare H (None) /hpf Urine Mucus Rare H (None) /hpf 10/08/24 10/08/24 Range/Units 03:29 03:29 WBC 17.09 H (4.50-10.00) X 10*3/uL RBC 3.90 L (4.10-5.20) X 10*6/uL MCH 32.1 H (27.0-32.0) pg Sodium 124 L (135-145) mmol/L Chloride 90 L (96-109) mmol/L Carbon Dioxide 21.5 L (21.6-31.8) mmol/L Anion Gap 12.50 H (4.00-12.00) mmol/L BUN/Creatinine Ratio 20.22 H (12.00-20.00) Ratio Glucose (70-110) mg/dL POC Glucose (mg/dL) (70-110) mg/dL Urine Protein (Negative) Urine Glucose (UA) (Negative) Urine Bacteria (None) /hpf Urine Mucus (None) /hpf
[2024-10-08] MEDS: SODIUM CHLORIDE 0.9% 1,000 ML IV ONE (11:53)
[2024-10-08] MEDS ORDERED: ZINC OXIDE PASTE (Z-GUARD) 1 APPLIC TOPICAL PRN (13:15)
[2024-10-08] MEDS: ACETAMINOPHEN TAB 325 MG TAB PO PRN (21:53)
--- NOTE | 2024-10-09 08:12 | P.PN ---
Progress Note - Text I was asked to take over care by my partner. The patient has a left femoral neck fracture after a ground level fall. Surgery yesterday was canceled due to hyponatremia. Patient seen and examined this morning. Her sodium has improved to 132. Plan for surgery later today. This was discussed with the patient. Please keep NPO and on bedrest.
[2024-10-09 09:48] LABS: HCT 38.7 % (37.2-46.3); HGB 12.6 g/dL (12.0-15.0); MCH 31.7 pg (27.0-32.0); MCHC 32.6 g/dL (32.0-37.0); MCV 97.2 FL (80.0-97.0); Mean Platelet Volume 10.4 FL (9.5-12.2); NRBC Per 100 WBC 0 X 10*3/uL (0.00-0.01); Platelet Count 189 X 10*3/uL (140-440); RBC 3.98 X 10*6/uL (4.10-5.20); RDW 13.4 % (11.5-14.5); WBC 11.92 X 10*3/uL (4.50-10.00)
[2024-10-09 12:21] LABS: Blood Urea Nitrogen 14.8 mg/dL (9.0-27.0); Calcium 8.4 mg/dL (8.7-10.3); Carbon Dioxide 20.3 mmol/L (21.6-31.8); Chloride 102 mmol/L (96-109); Glucose 82 mg/dL (70-110); Potassium 3.8 mmol/L (3.5-5.5); Sodium 134 mmol/L (135-145)
[2024-10-09] MEDS ORDERED: NEOSTIGMINE 1 MG/ML 10 ML VIAL ONE (15:38)
[2024-10-09] MEDS ORDERED: LIDOCAINE 1% INJ 10MG/ML (20 ML MDV) ONE (15:38)
[2024-10-09] MEDS ORDERED: ROCURONIUM 10 MG/ML (5 ML VIAL) IV ONE (15:38)
[2024-10-09] MEDS ORDERED: GLYCOPYRROLATE 0.2 MG/ML 2 ML VIAL ONE (15:38)
[2024-10-09] MEDS ORDERED: SUCCINYLCHOLINE CHLORIDE 200 MG/10 ML VIAL IV ONE (15:38)
[2024-10-09] MEDS ORDERED: PROPOFOL 10 MG/ML 20 ML VIAL IV ONE (15:38)
[2024-10-09] MEDS ORDERED: fentaNYL (PF) 50 MCG/ML 2 ML AMP ONE (15:38)
[2024-10-09] MEDS: SODIUM CHLORIDE 0.9% 1,000 ML IV ONE ×2 (15:39→21:18)
[2024-10-09] MEDS: SODIUM CHLORIDE 0.9% 50 ML with ceFAZolin 2,000 MG IV ONE (15:39)
[2024-10-09] MEDS: ROPIVACAINE/EPI/CLONIDINE/KET 50 ML SYRINGE MISCELLANE PRN (16:25)
[2024-10-09] MEDS: LACTATED RINGERS 1,000 ML IV ONE (16:36)
--- NOTE | 2024-10-09 17:14 | P.PN ---
Subjective Progress Note Date: 10/09/24 Hospital course: Patient is a pleasant 83-year-old female with a past medical history of AAA status postrepair with AF to device and transluminal stenting and stenting of left common iliac artery and right iliac artery, left bundle branch block, hypertension, hyperlipidemia,, COPD, and osteoporosis. She presented to the hospital on 10/06/2024 status post fall. Upon arrival to our facility, patient underwent evaluation in the emergency department. Vital signs upon show blood pressure 166/74, heart rate 66, respiratory rate 18, temp 97.5 F, and SpO2 of 94% on room air EKG completed showing normal sinus rhythm at 62 bpm with a left bundle branch block (left bundle branch block is a known and unchanged finding when compared to EKG completed 03/10/2019). Chest x-ray was completed negative for acute process. X-ray left hip and pelvis showing acute moderately displaced left subcapital femoral fracture. Labs were completed and reviewed. CBC showing leukocytosis with WBC count of 15.39. Coagulation profile normal findings. BMP showing hyponatremia with sodium of 133 and mild prerenal azotemia with BUN of 19. Blood glucose 147. Calcium 9.6. Liver profile unremarkable. Patient was admitted under orthopedic surgery team and we were consulted for medical clearance and medical management throughout hospitalization. Physical exam: Patient seen and fully evaluated at bedside this morning. She was resting comfortably and denied having any complaints at this time. She is awaiting to go down for surgical intervention later today with Dr. Mendez Vital signs reviewed and stable. General: Nontoxic, no distress and appears stated age. Thin and frail. Derm: Skin warm and dry, normal coloration for ethnicity. Head: Atraumatic, normocephalic and symmetric. Eyes: EOM's intact, no lid lag, and anicteric sclera Mouth: no lip lesions, mucus membranes moist Cardiovascular: regular rate and rhythm with normal S1S2, systolic murmur, positive posterior tibial pulses bilaterally, and cap refill < 2 seconds. Lungs: Respirations even, regular, and unlabored on room air. Lungs CTA bilaterally, no rhonchi, no rales, no wheezing, and no accessory muscle usage. Abdominal: soft, nontender to palpation, no guarding, no appreciable organomegaly Ext: No gross muscle atrophy, no edema, no contractures. Movement and sensation intact. Left lower extremity with shortening and left lateral rotatio n. Neuro: Speech clear, face symmetrical and CN II-XII grossly intact with no noted focal neuro deficits Psych: Alert and oriented to person, place, time, and situation. Appropriate and pleasant affect. Assessment and Plan of Care: Preoperative clearance Acute moderately displaced left subcapital femoral fracture -EKG completed and reviewed showing normal sinus rhythm at 62 bpm with a left bundle branch block (left bundle branch block is a known and unchanged finding when compared to EKG completed 03/10/2019). -NSQIP surgical risk calculator completed. Patient is in a slightly elevated risk for serious complication at 14.9% with average risk being 13.9% for serious complication, average risk for cardiac complication at 1.9% with average risk being 2.4%, and below average risk of at 3.1% with average risk of 3.7%. -Echocardiogram showing preserved EF of 55 to 60% with mild mitral regurgitation, moderate tricuspid regurgitation, and pulmonary hypertension -Patient is at an elevated risk to undergo any surgical procedure secondary to her age and underlying comorbidities, however there are no absolute contraindications for her to undergo urgent need for femoral fracture repair at this time. Patient is hemodynamically stable and medically optimized to undergo planned left hip hemiarthroplasty. -Recommend telemetry monitoring preoperatively, intraoperatively, and postoperatively and resumption of dual antiplatelet therapy with aspirin and Plavix once cleared by orthopedic surgery team. Hyponatremia -Improved. Sodium stable at 134 this morning. History of AAA status postrepair with AF to device and transluminal stenting and stenting of left common iliac artery and right iliac artery Known left bundle branch block Hypertension Hyperlipidemia -Aspirin and Plavix held pending clearance from orthopedic surgery team to sammi ballard. Patient to otherwise continue daily medication regimen with atorvastatin 40 mg daily, hydralazine 50 mg 3 times daily, and metoprolol 50 mg daily. -Telemetry monitoring. Hypomagnesemia -Magnesium 1.7. Orders placed for magnesium sulfate 2 g IVPB. Leukocytosis -Believed to be reactive secondary to acute moderately displaced left femoral fracture. No signs of infection at this time. Will continue to monitor for improvement/resolution with repeat morning labs. COPD, not in acute exacerbation - Continue Ventolin nebulizers 4 times daily as needed for wheezing/shortness of breath. Patient to be provided with supplemental oxygen as needed to maintain SpO2 equal to or greater than 90%. Data and imaging reviewed: -Vital signs reviewed. Blood pressure 167/74, heart rate 82, respiratory rate 19, temp 98.2 F, and SpO2 of 95% on room air. -Labs completed and reviewed. CBC showing mild leukocytosis of 11.92 improving from previous 17.09. Hemoglobin stable at 12.6. BMP showing improvement and stable sodium of 134. -Echocardiogram showing preserved EF of 55 to 60% with mild mitral regurgitation, moderate tricuspid regurgitation, and pulmonary hypertension. Thank you for allowing us to participate in the care of this pleasant patient. Do not hesitate to contact us with questions. Someone can be reached from the [facility] hospitalist group all hours of the day at [phone] or via [employer]. Patient was seen independently by Nurse Pracitioner. This document was prepared using [employer] dictation software. Please allow for errors in oil pumper, while rare they do occur. Adam Patino NP rendered care for this patient independently, reviewed the findings and plan as documented in the note above and agree with plan. I did not physically speak with or examine the patient on this date. Objective - Vital Signs Vital signs: Vital Signs Temp 98.2 F 10/09/24 06:57 Pulse 82 10/09/24 06:57 Resp 19 10/09/24 06:57 BP 209/98 10/09/24 06:57 Pulse Ox 95 10/09/24 06:57 FiO2 Intake & Output 10/08/24 10/09/24 10/09/24 18:59 06:59 18:59 Intake Total 2000 Output Total 1200 725 Balance 800 -725 Intake: Intake, IV Titration 2000 Amount Sodium Chloride 0.9% 1, 1000 000 ml @ 100 mls/hr IV . Q10H [facility] Rx#:[id number] Sodium Chloride 0.9% 1, 1000 000 ml @ 999 mls/hr IV . Q1H1M [facility] Rx#:[id number] Output: Urine 1200 725 Other: Voiding Method External Catheter External Catheter - Labs CBC & Chem 7: 10/09/24 05:06 10/09/24 05:06 Labs: Abnormal Lab Results - Last 24 Hours (Table) 10/08/24 10/08/24 10/08/24 Range/Units 10:45 12:00 13:57 Sodium 125 L 126 L 132 L (137-145) mmol/L Chloride 92 L (98-107) mmol/L BUN 18 H (7-17) mg/dL Glucose 111 H (74-99) mg/dL
--- NOTE | 2024-10-09 17:51 | FL ---
Fluoroscopy History: LEFT DIRECT ANTERIOR HIP Left direct anterior hip 24 SEC FL-DAP- 1.0803 Gycm2 [facility], , 10/09/2024 5:49 PM
[2024-10-09] MEDS ORDERED: NALOXONE 0.4 MG/ML 1 ML VIAL IV PRN (17:55)
[2024-10-09] MEDS ORDERED: HYDROcodone/APAP 10-325MG 1 EACH TAB PO PRN (17:55)
[2024-10-09] MEDS ORDERED: HYDROmorphone 0.5 MG/0.5 ML SYRINGE IVP PRN ×3 (17:55)
[2024-10-09] MEDS ORDERED: diazePAM 5 MG TAB PO PRN (17:55)
[2024-10-09] MEDS ORDERED: MAGNESIUM HYDROXIDE 2,400 MG/30 ML CUP PO PRN (17:55)
[2024-10-09] MEDS ORDERED: hydrOXYzine pamoate 25 MG CAP PO PRN (17:55)
--- NOTE | 2024-10-09 17:55 | P.OP ---
Date of Procedure: 10/09/24 Preoperative Diagnosis: 1. Displaced left subcapital femoral neck fracture 2. Peripheral vascular disease 3. Prior abdominal aortic aneurysm 4. COPD 5. Renal disease Postoperative Diagnosis: Same Procedure(s) Performed: Left direct anterior hip hemiarthroplasty Implants: Conesus Accolade C size #2, standard offset 41 mm outer diameter bipolar head 26 mm inner diameter bipolar head, +0 mm neck Anesthesia: GETA Surgeon: Timothy Mendez Estimated Blood Loss (ml): 300 IV fluids (ml): 800 Pathology: none sent Condition: stable Disposition: PACU Indications for Procedure: The patient is a very pleasant 83-year-old female with multiple medical problems who sustained a ground-level fall on 10/06/2024. She was seen in our emergency department and admitted under the care of my partner. She was cleared for surgery. She was initially scheduled for surgery yesterday but due to hyponatremia and OR availability her surgery was canceled. I was asked late yesterday afternoon to take over management.I met with the patient and their family to discuss treatment options. The patient has a displaced femoral neck fracture and based on their age, activity level, and medical comorbidities I recommended a hip hemiarthroplasty to facilitate early mobilization. My recommendation was to perform the hemiarthroplasty through a direct anterior approach to help lower the risk of dislocation and improve postoperative recovery and use cemented fixation of the femoral component to reduce the risk of fracture and postoperative thigh pain. We discussed the potential risks and complications of a hemiarthroplasty for displaced femoral neck fracture at length. Risks discussed include are certainly not limited to risks from anesthesia, superficial infection requiring local wound care and possibly surgical debridement, deep periprosthetic joint infection and the treatment for this, damage to local blood vessels or nerves particularly the lateral femoral cutaneous nerve, intraoperative fracture, postoperative periprosthetic fracture, leg length discrepancy, hip dislocation, aseptic loosening, groin pain, thigh pain, progression of arthritis requiring conversion to total hip arthroplasty, complications related to cementing the component, an inability to regain preinjury level of function, DVT, PE, acute coronary event, stroke, pneumonia, urinary tract infection, failure to thrive, and possibly . The patient and their family understand that while these are the most common complications other less common complications are possible. They provided their verbal and written consent to go forward with surgery. Operative Findings: There was a displaced subcapital femoral neck fracture and large hemarthrosis consistent with an acute femoral neck fracture. The patient had severe osteopenia so I elected to use cemented femoral fixation. Description of Procedure: The patient was identified in the preoperative holding area and the correct hip was marked with my initials. I reviewed the procedure and consent with the patient. All of their questions were answered. The patient was then brought back into the operating room by anesthesia. [facility] by the anesthesia team. Preoperative antibiotics and tranexamic acid were also given. After the patient was under anesthesia I examined their ankles to determine their preoperative leg length discrepancy. The skin over the anterior aspect of the hip was shaved to remove hair over the site of planned incision. Both feet and ankles were padded with webril and boots for the Home were applied. The patient was then carefully transferred onto the Home table. A perineal post was immediately placed. The arms were placed on arm holders and were well-padded. Both boots were secured to the spars on the Home table. The patient was positioned so that the pelvis was centered over the post. Nonsterile drapes were applied. A timeout was performed identifying the correct patient, operative extremity, and procedure. At this point fluoroscopy was brought in to take preoperative images of the pelvis and operative hip. A metallic bar was used to create a bi-ischial line for use as a reference to leg length adjustments during the procedure. Global offset was also measured on both the operative and nonoperative leg. Fluoroscopy was then brought out and a pre-scrub using a chlorhexidine scrub brush was performed. The operative limb was then prepped and draped in the standard sterile fashion. An anterior longitudinal incision was made lateral and distal to the ASIS. The skin and subcutaneous tissues were incised sharply. The underlying tensor fascia was identified and incised in its midportion. The fascia was dissected free from the underlying muscle and the muscle belly was retracted. A blunt tipped cobra retractor was placed over the superior neck under the muscle fibers of the gluteus minimus. The deep enveloping fascia of the tensor was incised. The anterior leash of vessels were then identified and cauterized. The fascia between the rectus and the capsule was then incised and the pre-capsular fat was excised. A second Cobra was placed inferior to the neck. The interval between the rectus and iliocapsularis and the hip capsule was developed and a retractor was placed carefully over the anterior rim of the acetabulum. A T-shaped anterior capsulotomy was performed. A hemarthrosis consistent with a femoral neck fracture was identified. The superior capsular leaflet was left in place in the inferior capsular flap was excised. The Cobra retractors were placed intracapsularly. A displaced femoral neck fracture was then identified. We then made a femoral neck osteotomy according to preoperative and intraoperative templating and confirmed the level of the osteotomy using fluoroscopic imaging. The femoral head was removed, passed off to the back table, and sized. The superior capsular flap was excised. On inspection of the acetabulum there were minimal degenerative changes with intact cartilage. Attention was then turned to the femur. The remnant dorsal lateral capsule was excised. The short external rotators were visible and protected. A bone hook was used to confirm appropriate translation of the trochanter away from the acetabulum. The leg was then extended and adducted and the bone hook was used to elevate the femur for broaching. A box osteotome and blunt tipped canal sound was then utilized to gain access to the femoral canal. We then sequentially broached the femur in appropriate anteversion until torsional stability was achieved and the implant was felt to have reached the appropriate size to allow trialing. The neck cut was brought flush to the trial broach with a calcar planar. A trial neck and head were then placed onto the broach and the hip was atraumatically reduced under direct visualization. External rotation to 90 was performed to assess stability. Fluoroscopy was brought in. An AP and lateral fluoroscopic image of the proximal femur was obtained to assess position and fill of the trial broach. An AP of the pelvis was then obtained and matched to the preoperative image taken. A bi-ischial bar was then placed and measurements were taken to assess changes in length and offset. The hip was then carefully dislocated, the proximal femur was exposed, and the trial implants were removed. The proximal femur was then prepared for cementing. The canal was thoroughly irrigated with pulsatile lavage to remove blood and marrow contents. A cement restrictor was placed to a depth just distal to the tip of the final implant. Epinephrine-soaked gauze was then packed into the proximal femur. 2 bags of cement with antibiotics were then mixed using a centrifuge and placed into a cement gun. Anesthesia was notified that cementing was about to commence to make sure the patient was appropriately ventilated and hydrated. Once the cement had reached appropriate consistency, the cement gun was used to fill the canal in a retrograde fashion starting at the restrictor. Cement was then pressurized into the canal with a blue tipped chairman & ceo. The stem was then carefully introduced into the cement taking care to guide the implant into appropriate version. The stem was held in position until the cement had fully set. All extra cement was removed while the cement was hardening. The trunnion was cleansed and the final head was tapped into place to engage the Coffman taper. The acetabulum was irrigated and visualized to be free of debris. The hip was carefully reduced. Stability was checked clinically with external rotation to 90 and there was no evidence of instability. Final fluoroscopic images were taken. The wound was then thoroughly irrigated with Irrisept. 3 L of sterile saline was irrigated through the wound using pulsatile lavage. Local anesthetic cocktail was injected into the soft tissues around the surgical field. The wound was then closed in layers. A sterile dressing was placed over the surgical incision. The drapes were taken down and the patient was carefully transferred off of the Home table. Following removal of the boots the leg lengths felt acceptable. The patient was then taken to recovery room having tolerated the procedure well. PLAN: The patient can weight-bear as tolerated on the operative extremity. 2 doses of postoperative antibiotics. DVT prophylaxis with aspirin 81 mg twice a day based on preoperative risk stratification. Physical therapy for gait training.
[2024-10-09] MEDS: hydrALAZINE HCL 20 MG/ML 1 ML VIAL IVP ONE (18:10)
[2024-10-09 20:48] LABS: Basophils # (A) 0.06 10*3/uL (0.00-0.10); Basophils % (A) 0.4 %; Eosinophils # (A) 0.03 10*3/uL (0.04-0.35); Eosinophils % (A) 0.2 %; HCT 38.5 % (37.2-46.3); HGB 13.3 g/dL (12.0-15.0); Lymphocytes # (A) 0.88 10*3/uL (0.90-5.00); Lymphocytes % (A) 5.2 %; MCHC 34.5 g/dL (32.0-37.0); MCV 95.5 fL (80.0-97.0); Mean Platelet Volume 10.1 fL (9.5-12.2); Monocytes # (A) 1.13 10*3/uL (0.20-1.00); Monocytes % (A) 6.7 %; Neutrophils # (A) 14.45 10*3/uL (1.80-7.70); Neutrophils % (A) 85.5 %; Platelet Count 208 10*3/uL (140-440); RBC 4.03 10*6/uL (4.10-5.20); RDW 13.1 % (11.5-14.5); WBC 16.88 10*3/uL (4.50-10.00)
[2024-10-09] MEDS: SENNOSIDES-DOCUSATE SODIUM 1 EACH TAB PO SCH (21:14)
[2024-10-09 22:59] LABS: Magnesium 1.8 mg/dL (1.5-2.4)
--- NOTE | 2024-10-10 08:53 | P.PN ---
Subjective The patient was seen at bedside this morning. She is alert and able to answer questions. She has minimal pain in her left leg as her block is still intact. Her only complaint is that she feels "groggy" Objective - Vital Signs Vital signs: Vital Signs Temp 98.2 F 10/10/24 06:58 Pulse 76 10/10/24 06:58 Resp 17 10/10/24 06:58 BP 156/73 10/10/24 06:58 Pulse Ox 95 10/10/24 06:58 FiO2 Intake & Output 10/09/24 10/10/24 10/10/24 18:59 06:59 18:59 Intake Total 1050 400 Output Total 300 600 Balance 750 -200 Weight 54.431 kg Intake: IV 1050 Oral 400 Output: Estimated Blood Loss 300 Other 600 Other: Voiding Method External Catheter # Voids 1 - Exam The patient is alert, oriented, and able to answer questions. A focused exam of the left lower extremity was conducted. There is a clean dressing over the anterior aspect of her left hip. There is no drainage or strikethrough. Her thigh is soft and compressible. Femoral nerve function is intact. She has a palpable dorsalis pedis pulse and her foot is warm and well-perfused. She is able to actively plantar flex her ankle and her toes. - Labs CBC & Chem 7: 10/09/24 20:37 10/09/24 05:06 Labs: Abnormal Lab Results - Last 24 Hours (Table) 10/09/24 10/09/24 10/09/24 Range/Units 05:06 05:06 20:37 WBC 11.92 H 16.88 H (4.50-10.00) X 10*3/uL RBC 3.98 L 4.03 L (4.10-5.20) X 10*6/uL MCV 97.2 H (80.0-97.0) FL MCH 33.0 H (27.0-32.0) pg Immature Gran # 0.33 H (0.00-0.04) 10*3/uL Neutrophils # 14.45 H (1.80-7.70) 10*3/uL Lymphocytes # 0.88 L (0.90-5.00) 10*3/uL Monocytes # 1.13 H (0.20-1.00) 10*3/uL Eosinophils # 0.03 L (0.04-0.35) 10*3/uL Sodium 134 L (135-145) mmol/L Carbon Dioxide 20.3 L (21.6-31.8) mmol/L Calcium 8.4 L (8.7-10.3) mg/dL Assessment and Plan Assessment: Postoperative day #1 status post left direct anterior hip hemiarthroplasty for displaced femoral neck fracture Plan: 1. Weight-bear as tolerated left lower extremity, up with assistance and a walker 2. 2 doses postoperative antibiotics 3. DVT prophylaxis with aspirin 81 mg twice daily 4. Leave surgical dressing in place 5. Appreciate internal medicine's assistance with perioperative medical management 6. Physical therapy 7. Attempt to mobilize out of bed to chair as able 8. Due to poor bone quality IntraOp and fragility fracture will check a vitamin D level 9. Dispo: The patient would like to discharge to [facility]. Discharge planning is in progress
[2024-10-10] MEDS: ASPIRIN 81 MG PO SCH (09:28)
[2024-10-10 09:53] LABS: HCT 30.9 % (37.2-46.3); HGB 10.5 g/dL (12.0-15.0); MCH 32.7 pg (27.0-32.0); MCV 96.3 FL (80.0-97.0); Mean Platelet Volume 10.7 FL (9.5-12.2); NRBC Per 100 WBC 0.02 X 10*3/uL (0.00-0.01); Platelet Count 169 X 10*3/uL (140-440); RBC 3.21 X 10*6/uL (4.10-5.20); RDW 13.2 % (11.5-14.5); WBC 13.21 X 10*3/uL (4.50-10.00)
[2024-10-10 11:01] LABS: BUN/Creat Ratio 19.88 Ratio (12.00-20.00); Blood Urea Nitrogen 15.9 mg/dL (9.0-27.0); Calcium 8.3 mg/dL (8.7-10.3); Carbon Dioxide 22.7 mmol/L (21.6-31.8); Chloride 99 mmol/L (96-109); Glucose 87 mg/dL (70-110); Magnesium 1.5 mg/dL (1.5-2.4); Potassium 3.5 mmol/L (3.5-5.5); Sodium 133 mmol/L (135-145)
[2024-10-10] MEDS: SODIUM CHLORIDE 0.9% 500 ML 500 ML IV ONE (11:41)
--- NOTE | 2024-10-10 14:05 | P.PN ---
Subjective Progress Note Date: 10/10/24 Hospital course: Patient is a pleasant 83-year-old female with a past medical history of AAA status postrepair with AF to device and transluminal stenting and stenting of left common iliac artery and right iliac artery, left bundle branch block, hypertension, hyperlipidemia,, COPD, and osteoporosis. She presented to the hospital on 10/06/2024 status post fall. Upon arrival to our facility, patient underwent evaluation in the emergency department. Vital signs upon show blood pressure 166/74, heart rate 66, respiratory rate 18, temp 97.5 F, and SpO2 of 94% on room air EKG completed showing normal sinus rhythm at 62 bpm with a left bundle branch block (left bundle branch block is a known and unchanged finding when compared to EKG completed 03/10/2019). Chest x-ray was completed negative for acute process. X-ray left hip and pelvis showing acute moderately displaced left subcapital femoral fracture. Labs were completed and reviewed. CBC showing leukocytosis with WBC count of 15.39. Coagulation profile normal findings. BMP showing hyponatremia with sodium of 133 and mild prerenal azotemia with BUN of 19. Blood glucose 147. Calcium 9.6. Liver profile unremarkable. Patient was admitted under orthopedic surgery team and we were consulted for medical clearance and medical management throughout hospitalization. Echocardiogram showing preserved EF of 55 to 60% with mild mitral regurgitation, moderate tricuspid regurgitation, and pulmonary hypertension. Patient was taken to OR on 10/09/2024 and underwent a left anterior hip hemiarthroplasty with Dr. Mendez. Physical exam: Patient seen and fully evaluated at bedside this morning. She is postoperative day 1 and appears to be doing well. Patient was resting in bed and reports feeling great this morning. Patient denies having any postoperative pain stating pain in her left hip is approximately 1 out of 10 at the most. She reports her appetite seems to have improved today and that she is feeling much better. She denies having any headache, lightheadedness, dizziness, chest pain, palpitations, shortness of breath, or any other complaints. Patient did require straight catheterization x 1 by RN for urinary retention. We will continue to monitor for retention/postvoid residual. Vital signs reviewed and stable. General: Nontoxic, no distress and appears stated age. Thin and frail. Derm: Skin warm and dry, normal coloration for ethnicity. Head: Atraumatic, normocephalic and symmetric. Eyes: EOM's intact, no lid lag, and anicteric sclera Mouth: no lip lesions, mucus membranes moist Cardiovascular: regular rate and rhythm with normal S1S2, systolic murmur, positive posterior tibial pulses bilaterally, and cap refill < 2 seconds. Lungs: Respirations even, regular, and unlabored on room air. Lungs CTA bilaterally, no rhonchi, no rales, no wheezing, and no accessory muscle usage. Abdominal: soft, nontender to palpation, no guarding, no appreciable organomegaly Ext: No gross muscle atrophy, no edema, no contractures. Movement and sensation intact. Postoperative dressing in place left hip along with ice pack. Neuro: Speech clear, face symmetrical and CN II-XII grossly intact with no noted focal neuro deficits Psych: Alert and oriented to person, place, time, and situation. Appropriate and pleasant affect. Assessment and Plan of Care: Status post left hip hemiarthroplasty Acute moderately displaced left subcapital femoral fracture - Management per primary admitting orthopedic surgery team including DVT prophylaxis, pain management, wound/dressing management, weightbearing, and PT/OT. Acute postoperative blood loss anemia -Stable and expected finding. Preoperative hemoglobin 12.6 with postoperative hemoglobin of 10.5. Again this is a stable and expected finding, no active bleeding noted at this time. No need for transfusion or further interventions. Will continue to monitor with repeat a.m. labs. Hyponatremia -Stable. Sodium stable at 133 this morning. Hypomagnesemia -Magnesium 1.5. Orders placed for magnesium sulfate 2 g IVPB x 1 dose. Will continue to monitor for improvement/resolution with repeat a.m. labs. History of AAA status postrepair with AF to device and transluminal stenting and stenting of left common iliac artery and right iliac artery Known left bundle branch block Hypertension Hyperlipidemia -Aspirin and Plavix held pending clearance from orthopedic surgery team to resume. Patient to otherwise continue daily medication regimen with atorvastatin 40 mg daily, hydralazine 50 mg 3 times daily, and metoprolol 50 mg daily. -Telemetry monitoring. Hypomagnesemia -Magnesium 1.7. Orders placed for magnesium sulfate 2 g IVPB. Leukocytosis -Believed to be reactive secondary to acute moderately displaced left femoral fracture. No signs of infection at this time. Will continue to monitor for improvement/resolution with repeat morning labs. COPD, not in acute exacerbation - Continue Ventolin nebulizers 4 times daily as needed for wheezing/shortness of breath. Patient to be provided with supplemental oxygen as needed to maintain SpO2 equal to or greater than 90%. Data and imaging reviewed: -Vital signs reviewed. Blood pressure 156/73, heart rate 76, respiratory rate 17, temp 98.2 F, and SpO2 of 95% on room air. -Labs completed and reviewed. CBC showing leukocytosis with WBC count of 13.21 and stable postoperative blood loss anemia with hemoglobin of 10.5. BMP showing stable hyponatremia with sodium of 133 otherwise normal findings. Blood glucose was 87. Magnesium was low at 1.5. Thank you for allowing us to participate in the care of this pleasant patient. Do not hesitate to contact us with questions. Someone can be reached from the [facility] hospitalist group all hours of the day at [phone] or via [employer]. Patient was seen independently by Nurse Pracitioner. This document was prepared using [employer] dictation software. Please allow for errors in senior technical writer, while rare they do occur. Adam Patino NP rendered care for this patient independently, reviewed the findings and plan as documented in the note above and agree with plan. I did not physically speak with or examine the patient on this date. Objective - Vital Signs Vital signs: Vital Signs Temp 98.2 F 10/10/24 06:58 Pulse 76 10/10/24 06:58 Resp 17 10/10/24 06:58 BP 156/73 10/10/24 06:58 Pulse Ox 95 10/10/24 06:58 FiO2 Intake & Output 10/09/24 10/10/24 10/10/24 18:59 06:59 18:59 Intake Total 1050 400 Output Total 300 600 Balance 750 -200 Weight 54.431 kg Intake: IV 1050 Oral 400 Output: Estimated Blood Loss 300 Other 600 Other: Voiding Method External Catheter # Voids 1 - Labs CBC & Chem 7: 10/10/24 04:55 10/10/24 04:55 Labs: Abnormal Lab Results - Last 24 Hours (Table) 10/09/24 10/09/24 10/09/24 Range/Units 05:06 05:06 20:37 WBC 11.92 H 16.88 H (4.50-10.00) X 10*3/uL RBC 3.98 L 4.03 L (4.10-5.20) X 10*6/uL MCV 97.2 H (80.0-97.0) FL MCH 33.0 H (27.0-32.0) pg Immature Gran # 0.33 H (0.00-0.04) 10*3/uL Neutrophils # 14.45 H (1.80-7.70) 10*3/uL Lymphocytes # 0.88 L (0.90-5.00) 10*3/uL Monocytes # 1.13 H (0.20-1.00) 10*3/uL Eosinophils # 0.03 L (0.04-0.35) 10*3/uL Sodium 134 L (135-145) mmol/L Carbon Dioxide 20.3 L (21.6-31.8) mmol/L Calcium 8.4 L (8.7-10.3) mg/dL
[2024-10-10] MEDS: MAGNESIUM SULFATE-D5W PMX 1 GM in DEXTROSE/WATER 1 100ML.BAG IVPB SCH (14:17)
[2024-10-10] MEDS: MAG HYDROX/AL HYDROX/SIMETH 30 ML CUP PO STA (18:25)
[2024-10-10] MEDS: ceFAZolin 2 GM in DEXTROSE 5% IN WATER 50 ML IVPB SCH (20:07)
[2024-10-11 07:37] VITALS: PULSE 76; RESP 18
--- NOTE | 2024-10-11 08:10 | P.PN ---
Subjective Progress Note Date: 10/11/24 No acute events overnight. Patient is doing well this morning. The pain in their hip is mild. They deny chest pain or shortness of breath. Objective - Vital Signs Vital signs: Vital Signs Temp 97.9 F 10/11/24 07:17 Pulse 76 10/11/24 07:17 Resp 18 10/11/24 07:17 BP 176/71 10/11/24 07:17 Pulse Ox 90 L 10/11/24 07:17 FiO2 Intake & Output 10/10/24 10/11/24 10/11/24 18:59 06:59 18:59 Intake Total 540 Output Total 500 950 Balance -500 -410 Intake: Oral 540 Output: Urine 500 950 Other: Voiding Method External Catheter - Exam The patient is alert, oriented, and able to answer questions. A focused exam of the left lower extremity was conducted. There is a clean dressing over the anterior aspect of her left hip. There is no drainage or strikethrough. Her thigh is soft and compressible. Femoral nerve function is intact. She has a palpable dorsalis pedis pulse and her foot is warm and well-perfused. She is able to actively plantar flex her ankle and her toes. - Labs CBC & Chem 7: 10/10/24 04:55 10/10/24 04:55 Labs: Abnormal Lab Results - Last 24 Hours (Table) 10/10/24 10/10/24 10/10/24 Range/Units 04:55 04:55 04:55 WBC 13.21 H (4.50-10.00) X 10*3/uL RBC 3.21 L (4.10-5.20) X 10*6/uL Hgb 10.5 L (12.0-15.0) g/dL Hct 30.9 L (37.2-46.3) % MCH 32.7 H (27.0-32.0) pg NRBC/100 WBC Diff 0.02 H (0.00-0.01) X 10*3/uL Sodium 133 L (135-145) mmol/L Calcium 8.3 L (8.7-10.3) mg/dL Vitamin D 25-Hydroxy 20.9 L (30.0-100.0) ng/mL Assessment and Plan Assessment: Postoperative day #2 status post left direct anterior hip hemiarthroplasty for displaced femoral neck fracture Plan: 1. Weight-bear as tolerated left lower extremity, up with assistance and a walker 2. 2 doses postoperative antibiotics 3. DVT prophylaxis with aspirin 81 mg twice daily 4. Leave surgical dressing in place 5. Appreciate internal medicine's assistance with perioperative medical management 6. Physical therapy 7. Attempt to mobilize out of bed to chair as able. Dispo: The patient would like to discharge to [facility]. Discharge planning is in progress. A start form was completed and placed in the patient's chart. A paper prescription for [place] was placed in the patient's chart chart. Dictation was produced using [employer] dictation software, please excuse any grammatical, word or spelling errors.
[2024-10-11 08:39] LABS: BUN/Creat Ratio 15.75 Ratio (12.00-20.00); Blood Urea Nitrogen 12.6 mg/dL (9.0-27.0); Calcium 8.2 mg/dL (8.7-10.3); Chloride 100 mmol/L (96-109); Glucose 105 mg/dL (70-110); Potassium 3.4 mmol/L (3.5-5.5); Sodium 133 mmol/L (135-145)
[2024-10-11] MEDS: CLOPIDOGREL 75 MG TAB PO SCH (10:57)
[2024-10-11] MEDS: POTASSIUM CHLORIDE ER 20 MEQ TAB.ER PO STA (10:57)
--- NOTE | 2024-10-11 12:15 | P.PN ---
Subjective Progress Note Date: 10/11/24 Hospital course: Patient is a pleasant 83-year-old female with a past medical history of AAA status postrepair with AF to device and transluminal stenting and stenting of left common iliac artery and right iliac artery, left bundle branch block, hypertension, hyperlipidemia,, COPD, and osteoporosis. She presented to the hospital on 10/06/2024 status post fall. Upon arrival to our facility, patient underwent evaluation in the emergency department. Vital signs upon show blood pressure 166/74, heart rate 66, respiratory rate 18, temp 97.5 F, and SpO2 of 94% on room air EKG completed showing normal sinus rhythm at 62 bpm with a left bundle branch block (left bundle branch block is a known and unchanged finding when compared to EKG completed 03/10/2019). Chest x-ray was completed negative for acute process. X-ray left hip and pelvis showing acute moderately displaced left subcapital femoral fracture. Labs were completed and reviewed. CBC showing leukocytosis with WBC count of 15.39. Coagulation profile normal findings. BMP showing hyponatremia with sodium of 133 and mild prerenal azotemia with BUN of 19. Blood glucose 147. Calcium 9.6. Liver profile unremarkable. Patient was admitted under orthopedic surgery team and we were consulted for medical clearance and medical management throughout hospitalization. Echocardiogram showing preserved EF of 55 to 60% with mild mitral regurgitation, moderate tricuspid regurgitation, and pulmonary hypertension. Patient was taken to OR on 10/09/2024 and underwent a left anterior hip hemiarthroplasty with Dr. Mendez. Physical exam: Patient seen and fully evaluated at bedside this morning. She is postoperative day 2 and appears to be doing well. Patient was sitting up in the chair and currently reports feeling great. She reports only a mild ache/burning at left hip and states it comes and goes and states that is very minimal. She denies any other complaints including headache, lightheadedness, dizziness, chest pain, palpitations, shortness of breath, or experiencing any numbness/tingling/weakness in her extremities.. Vital signs reviewed and stable. General: Nontoxic, no distress and appears stated age. Thin and frail. Derm: Skin warm and dry, normal coloration for ethnicity. Head: Atraumatic, normocephalic and symmetric. Eyes: EOM's intact, no lid lag, and anicteric sclera Mouth: no lip lesions, mucus membranes moist Cardiovascular: regular rate and rhythm with normal S1S2, systolic murmur, positive posterior tibial pulses bilaterally, and cap refill < 2 seconds. Lungs: Respirations even, regular, and unlabored on room air. Lungs CTA bilaterally, no rhonchi, no rales, no wheezing, and no accessory muscle usage. Abdominal: soft, nontender to palpation, no guarding, no appreciable organomegaly Ext: No gross muscle atrophy, no edema, no contractures. Movement and sensation intact. Postoperative dressing in place left hip along with ice pack. Neuro: Speech clear, face symmetrical and CN II-XII grossly intact with no noted focal neuro deficits Psych: Alert and oriented to person, place, time, and situation. Appropriate and pleasant affect. Assessment and Plan of Care: Status post left hip hemiarthroplasty Acute moderately displaced left subcapital femoral fracture - Management per primary admitting orthopedic surgery team including DVT pro phylaxis, pain management, wound/dressing management, weightbearing, and PT/OT. Acute postoperative blood loss anemia -Stable and expected finding. Preoperative hemoglobin 12.6 with postoperative hemoglobin of 10.5. Again this is a stable and expected finding, no active bleeding noted at this time. No need for transfusion or further interventions. Will continue to monitor with repeat a.m. labs. Hyponatremia resolved. -Stable. Sodium stable at 133 this morning. Hypokalemia -Potassium 3.4. Order placed for K-Dur 40 mEq p.o. x 1 dose. History of AAA status postrepair with AF to device and transluminal stenting and stenting of left common iliac artery and right iliac artery Known left bundle branch block Hypertension Hyperlipidemia -Patient to otherwise continue daily medication regimen with atorvastatin 40 mg daily, hydralazine 50 mg 3 times daily, and metoprolol 50 mg daily. -Telemetry monitoring. Hypomagnesemia -Resolved after replacement with magnesium of 2.0 this morning. Leukocytosis -Believed to be reactive secondary to acute moderately displaced left femoral fracture. No signs of infection at this time. Will continue to monitor for improvement/resolution with repeat morning labs. COPD, not in acute exacerbation - Continue Ventolin nebulizers 4 times daily as needed for wheezing/shortness of breath. Patient to be provided with supplemental oxygen as needed to maintain SpO2 equal to or greater than 90%. Data and imaging reviewed: -Vital signs reviewed. Blood pressure was elevated this morning prior to morning medication administration. Blood pressure 176/71, heart rate 76, respiratory rate 18, temp 97.9 degrees SpO2 of 99% on room air. -Labs completed and reviewed. CBC showing leukocytosis with WBC count of 13.21 and stable postoperative blood loss anemia with hemoglobin of 10.5. BMP showing mild hyponatremia with sodium stable at 133 and hypokalemia with potassium of 3.4. Magnesium showing resolution of hypomagnesemia with repeat magnesium this morning of 2.0. Thank you for allowing us to participate in the care of this pleasant patient. Do not hesitate to contact us with questions. Someone can be reached from the [facility] hospitalist group all hours of the day at [phone] or via [employer]. Patient was seen independently by Nurse Pracitioner. This document was prepared using [employer] dictation software. Please allow for errors in drill operator automatic, while rare they do occur. Adam Patino NP rendered care for this patient independently, reviewed the findings and plan as documented in the note above and agree with plan. I did not physically speak with or examine the patient on this date. Objective - Vital Signs Vital signs: Vital Signs Temp 97.9 F 10/11/24 07:17 Pulse 76 10/11/24 07:17 Resp 18 10/11/24 07:17 BP 176/71 10/11/24 07:17 Pulse Ox 90 L 10/11/24 07:17 FiO2 Intake & Output 10/10/24 10/11/24 10/11/24 18:59 06:59 18:59 Intake Total 540 Output Total 500 950 Balance -500 -410 Intake: Oral 540 Output: Urine 500 950 Other: Voiding Method External Catheter External Catheter - Labs CBC & Chem 7: 10/10/24 04:55 10/11/24 03:35 Labs: Abnormal Lab Results - Last 24 Hours (Table) 10/10/24 10/10/24 10/10/24 Range/Units 04:55 04:55 04:55 WBC 13.21 H (4.50-10.00) X 10*3/uL RBC 3.21 L (4.10-5.20) X 10*6/uL Hgb 10.5 L (12.0-15.0) g/dL Hct 30.9 L (37.2-46.3) % MCH 32.7 H (27.0-32.0) pg NRBC/100 WBC Diff 0.02 H (0.00-0.01) X 10*3/uL Sodium 133 L (135-145) mmol/L Calcium 8.3 L (8.7-10.3) mg/dL Vitamin D 25-Hydroxy 20.9 L (30.0-100.0) ng/mL
--- NOTE | 2024-10-11 14:32 | P.DS ---
Providers Date of admission: 10/06/24 15:14 Attending physician: Timothy Mendez Consults: 10/06/24 15:13 Consult Physician Urgent Consulting Provider: Brijesh Hernandez Consult Reason/Comments: Medical management Do you want consulting provider notified?: Yes Primary care physician: Sunil Zuluaga DO Hospital Course: This is a 83-year-old patient, who presented to the emergency department on 10/15 after falling and sustaining injury to her left hip. She stated that she was leaving the house to go shopping with her daughter and tripped and landed on her left hip. She denied head injury. She complained of pain about the left hip. On exam and x-ray she is found to have a femoral neck fracture. Orthopedics was consulted. The clinical and x-ray findings were discussed with the patient. It was recommended she be admitted for surgical intervention with hemiarthroplasty of the left hip. The procedure was discussed in detail including the possible risks and outcomes. The patient is on Plavix which was held until after surgery. On 11/08/2024 they underwent left direct anterior hip hemiarthroplasty for displaced femoral neck fracture by Dr. Mendez. The patient tolerated the procedure well. The patient was transferred to the orthopedic floor. The patient had no acute events over night. The patient's pain has been well-controlled. Patient was examined at bedside this morning. Paper Rx, walker order, and Start form completed and placed in the patient's chart. Patient worked with physical therapy and it was determined they would need transferred to rehab at discharge, plan to discharge today. Plan follow up in two weeks in our office. Please see med rec for a list of accurate medications. Assessment: post op day #2 status post left hip hemiarthroplasty for displaced femoral neck fracture left hip pain multiple medical problems Patient Condition at Discharge: Fair Plan - Discharge Summary Discharge Rx Participant: No New Discharge Prescriptions: New HYDROcodone/APAP 5-325MG [[place] 5] 1 each PO Q6HR PRN #12 tab PRN Reason: Pain Sennosides-Docusate Sodium [Senokot-S] 1 tab PO BID PRN #60 tablet PRN Reason: Constipation Continue Aspirin 81 mg PO DAILY chew Clopidogrel [Plavix] 75 mg PO DAILY #30 tab Acetaminophen Tab [Tylenol] 650 mg PO Q6HR PRN tab PRN Reason: Mild Breakthrough Pain L.acidoph,Paracasei, B.lactis [Probiotic] 1 cap PO DAILY ALPRAZolam [Xanax] 0.25 mg PO BID PRN #6 tab PRN Reason: Anxiety Albuterol Sulfate [Ventolin HFA] 2 puff INHALATION RT-QID PRN PRN Reason: Shortness Of Breath Fluticasone Nasal [place] [Flonase Nasal [place]] 1 spray EA NOSTRIL DAILY PRN PRN Reason: Allergy Symptoms Famotidine [Pepcid] 20 mg PO DAILY PRN PRN Reason: Heartburn Calcium Carbonate [Calcium] 600 mg PO DAILY hydrALAZINE HCL [Apresoline] 50 mg PO TID Metoprolol Succinate (ER) [Toprol XL] 50 mg PO DAILY Atorvastatin [Lipitor] 40 mg PO DAILY Ergocalciferol [Vitamin D2 (1250 Mcg = 89912 Iu)] 1,250 mcg PO Q30D Estradiol Cream [Estrace Cream 0.01%] 0.5 gm VAGINAL MOWEFR No Action Cephalexin [Keflex] 500 mg PO DAILY Discharge Medication List Acetaminophen Tab [Tylenol] 650 mg PO Q6HR PRN tab 03/11/19 [Rx] Aspirin 81 mg PO DAILY chew 03/11/19 [Rx] Clopidogrel [Plavix] 75 mg PO DAILY #30 tab 03/11/19 [Rx] Albuterol Sulfate [Ventolin HFA] 2 puff INHALATION RT-QID PRN 10/06/24 [History] Atorvastatin [Lipitor] 40 mg PO DAILY 10/06/24 [History] Calcium Carbonate [Calcium] 600 mg PO DAILY 10/06/24 [History] Cephalexin [Keflex] 500 mg PO DAILY 10/06/24 [History] Ergocalciferol [Vitamin D2 (1250 Mcg = 94626 Iu)] 1,250 mcg PO Q30D 10/06/24 [History] Estradiol Cream [Estrace Cream 0.01%] 0.5 gm VAGINAL MOWEFR 10/06/24 [History] Famotidine [Pepcid] 20 mg PO DAILY PRN 10/06/24 [History] Fluticasone Nasal [place] [Flonase Nasal [place]] 1 spray EA NOSTRIL DAILY PRN 10/06/24 [History] L.acidoph,Paracasei, B.lactis [Probiotic] 1 cap PO DAILY 10/06/24 [History] Metoprolol Succinate (ER) [Toprol XL] 50 mg PO DAILY 10/06/24 [History] hydrALAZINE HCL [Apresoline] 50 mg PO TID 10/06/24 [History] ALPRAZolam [Xanax] 0.25 mg PO BID PRN #6 tab 10/11/24 [Rx] HYDROcodone/APAP 5-325MG [[place] 5] 1 each PO Q6HR PRN #12 tab 10/11/24 [Rx] Sennosides-Docusate Sodium [Senokot-S] 1 tab PO BID PRN #60 tablet 10/11/24 [Rx] Follow up Appointment(s)/Referral(s): Joselin Mullins NPC [REFERRING] - 1-2 Days Timothy Mendez MD [Medical Doctor] - 2 Weeks Activity/Diet/Wound Care/Special Instructions: 1. Weight-bear as tolerated on your operative extremity unless instructed otherwise. Use a walker or other assistive device to ambulate. 2. Leave surgical dressing in place. If your dressing becomes saturated with blood, there is drainage, or the dressing becomes loose please contact the office. 3. It is okay to shower with your surgical dressing, but do not submerge in water (no hot tubs, bath's, swimming etc.) 4. Make sure to take her blood clot prevention medication as prescribed (aspirin, Eliquis, Xarelto, and Plavix are commonly prescribed medications for blood clot prevention). Home Pepcid for GI prophylaxis. 5. While taking [place] or Percocet for pain make sure you're taking a stool softener (Colace) and drink lots of water. 6. Keep all follow-up appointments as scheduled. You will usually be seen in 1-2 weeks following surgery. 7. Please contact the office with any questions or concerns [phone] Discharge Disposition: TRANSFER TO SNF/ECF
[2024-10-11 14:43] VITALS: BP 171/73; TEMP 98.2
[2024-10-12] MEDS ORDERED: ASPIRIN 81 MG PO SCH (09:00)
[2024-10-14] MEDS ORDERED: ERGOCALCIFEROL 1,250 MCG (50,000 IU) CAPSULE PO SCH (09:00)
== END 2024-10-11 15:50 | DRG 522 ==
LOC: EC 13:57 → 4SSUR 15:14
PROVIDERS: ADMIT Orthopaedic Surgery; ATTEND Orthopaedic Surgery
PROC: 8E0YXBF Computer Assisted Procedure of Lower Extremity, With Fluoroscopy (ICD-10-PCS; 2024-10-09)
PROC: 3E0T3BZ Introduction of Anesthetic Agent into Peripheral Nerves and Plexi, Percutaneous Approach (ICD-10-PCS; 2024-10-09)
PROC: 0SRS019 Replacement of Left Hip Joint, Femoral Surface with Metal Synthetic Substitute, Cemented, Open Approach (ICD-10-PCS; principal; 2024-10-09 13:50)
DX: S72.012A Unspecified intracapsular fracture of left femur, initial encounter for closed fracture (principal); D62 Acute posthemorrhagic anemia; I27.20 Pulmonary hypertension, unspecified; J44.9 Chronic obstructive pulmonary disease, unspecified; I10 Essential (primary) hypertension; I73.9 Peripheral vascular disease, unspecified; I08.1 Rheumatic disorders of both mitral and tricuspid valves; E87.1 Hypo-osmolality and hyponatremia; I44.7 Left bundle-branch block, unspecified; N28.89 Other specified disorders of kidney and ureter; I45.4 Nonspecific intraventricular block; E78.5 Hyperlipidemia, unspecified; D72.829 Elevated white blood cell count, unspecified; E83.42 Hypomagnesemia; Z86.79 Personal history of other diseases of the circulatory system; F41.1 Generalized anxiety disorder; I25.10 Atherosclerotic heart disease of native coronary artery without angina pectoris; M81.0 Age-related osteoporosis without current pathological fracture; W01.0XXA Fall on same level from slipping, tripping and stumbling without subsequent striking against object, initial encounter; Z79.02 Long term (current) use of antithrombotics/antiplatelets; Z79.82 Long term (current) use of aspirin; Z79.899 Other long term (current) drug therapy; Z87.891 Personal history of nicotine dependence; Z90.710 Acquired absence of both cervix and uterus; Z88.8 Allergy status to other drugs, medicaments and biological substances
CPT/HCPCS: 36415; 71045; 73501; 73502; 80048; 80053; 81001; 82306; 83735; 84295; 85025; 85027; 85610; 85730; 93005; 93306; 96374; 96375; 99285